=== PATIENT | female | born 1970 | race Caucasian/White ===

== ENCOUNTER 2016-10-08 13:56 | Emergency (ER) | payer MEDICAID ==
[2016-10-08 14:50] VITALS: TEMP 98.4
--- NOTE | 2016-10-08 15:32 | C.PDOC ---
History Of Present Illness 45 year old female who presents to the ER with a complaint of a right sided headache over the region of her RACING BOARD MARKER shunt since yesterday. Patient denies exacerbating or relieving factors, fever, vomiting, weakness, numbness, or confusion. Time Seen by Provider: 10/08/16 15:17 Chief Complaint (Nursing): Headache History Per: Patient History/Exam Limitations: no limitations Onset/Duration Of Symptoms: Days Current Symptoms Are (Timing): Still Present Preceeding Symptoms: None Associated Symptoms: denies: Blurred Vision, Nausea, Vomiting, Extremity Weakness Recent travel outside of the [place]: No Past Medical History Reviewed: Historical Data, Nursing Documentation, Vital Signs Vital Signs: Last Vital Signs Temp 98.4 F 10/08/16 14:44 Pulse 75 10/08/16 14:44 Resp 17 10/08/16 14:44 BP 115/76 10/08/16 14:44 Pulse Ox 99 10/08/16 16:05 - Medical History PMH: CHF, HTN, Hypercholesterolemia, Seizures (siezure at 15 yrs old), Chronic Pain (right hip secondary to surgery) - [facility] Procedures BYPASS CEREB VENT TO PERITON CAV W SYNTH SUB, PERC (03/15/15) Family History: States: Unknown Family Hx - Social History Hx Tobacco Use: No Hx Alcohol Use: No Hx Substance Use: No - Immunization History Hx Tetanus Toxoid Vaccination: No Hx Influenza Vaccination: No Hx Pneumococcal Vaccination: No Review Of Systems Constitutional: Negative for: Fever, Chills Cardiovascular: Negative for: Chest Pain, Palpitations Respiratory: Negative for: Cough, Shortness of Breath Gastrointestinal: Negative for: Nausea, Vomiting, Abdominal Pain Genitourinary: Negative for: Dysuria Neurological: Positive for: Headache. Negative for: Weakness, Numbness Physical Exam - Physical Exam Appears: Non-toxic, No Acute Distress Skin: Normal Color, Warm, Dry Head: Other (No redness or swelling around RACING BOARD MARKER shunt on the right side of head) Eye(s): bilateral: Normal Inspection, PERRL, EOMI Oral Mucosa: Moist Neck: Normal, Supple Chest: Symmetrical, No Tenderness Cardiovascular: Rhythm Regular, No Murmur Respiratory: Normal Breath Sounds, No Rales, No Rhonchi, No Wheezing Gastrointestinal/Abdominal: Soft, No Tenderness Neurological/Psych: Oriented x3, Normal Speech, Normal Cognition, Normal Cranial Nerves, Normal Motor, Normal Sensation, Other (Normal cerebellar, No focal deficits) ED Course And Treatment O2 Sat by Pulse Oximetry: 99 (Room air) Pulse Ox Interpretation: Normal Medical Decision Making Medical Decision Makin the pt feels better, denies need for any additional pain medicine. disc results, plan for f/u, rtr. PROCEDURE: CT HEAD WITHOUT CONTRAST. HISTORY: headache hx v/p shunt COMPARISON: Comparison is made to the previous study dated 03/23/2015 TECHNIQUE: Axial computed tomography images were obtained through the head/brain without intravenous contrast. Radiation dose: Total exam DLP = 817.32 mGy-cm. This CT exam was performed using one or more of the following dose reduction techniques: Automated exposure control, adjustment of the mA and/or kV according to patient size, and/or use of iterative reconstruction technique. FINDINGS: HEMORRHAGE: No intracranial hemorrhage. BRAIN: Focal white matter hypodensity is again noted at the left frontal lobe has not significantly changed since the previous exam. Periventricular white matter hypodensities are again seen. VENTRICLES: The lateral and 3rd ventricles are moderately dilated. The 4th ventricle is mildly dilated. Again seen is possible cystic lesion at or adjacent to the 3rd ventricle at the midline. Again seen is right parietal approach ventriculostomy catheter extending to the midline in between the lateral ventricles. CALVARIUM: Right parietal pinhole for the ventriculoperitoneal shunt catheter is again noted. No evidence of acute pathology in the calvarium PARANASAL SINUSES: Unremarkable as visualized. No significant inflammatory changes. MASTOID AIR CELLS: Unremarkable as visualized. No inflammatory changes. OTHER FINDINGS: None. IMPRESSION: Persistent moderate hydrocephalus as described above. Re- demonstration of midline cystic lesion at or adjacent to the 3rd ventricle. Re- demonstration of patchy hypodensity at the periventricular region represent a combination of transependymal edema and white matter chronic microvascular ischemic disease. Re- demonstration of focal hypodensity at the white matter of the left frontal lobe. Disposition - Disposition Disposition: HOME/ ROUTINE Disposition Time: 17:56 Condition: IMPROVED - Clinical Impression Clinical Impression: Head pain - Scribe Statement The provider has reviewed the documentation as recorded by the Scribe Yao Del Real All medical record entries made by the Scribe were at my direction and personally dictated by me. I have reviewed the chart and agree that the record accurately reflects my personal performance of the history, physical exam, medical decision making, and the department course for this patient. I have also personally directed, reviewed, and agree with the discharge instructions and disposition.
--- NOTE | 2016-10-08 17:41 | CT ---
PROCEDURE: CT HEAD WITHOUT CONTRAST. HISTORY: headache hx v/p shunt COMPARISON: Comparison is made to the previous study dated 03/23/2015 TECHNIQUE: Axial computed tomography images were obtained through the head/brain without intravenous contrast. Radiation dose: Total exam DLP = 817.32 mGy-cm. This CT exam was performed using one or more of the following dose reduction techniques: Automated exposure control, adjustment of the mA and/or kV according to patient size, and/or use of iterative reconstruction technique. FINDINGS: HEMORRHAGE: No intracranial hemorrhage. BRAIN: Focal white matter hypodensity is again noted at the left frontal lobe has not significantly changed since the previous exam. Periventricular white matter hypodensities are again seen. VENTRICLES: The lateral and 3rd ventricles are moderately dilated. The 4th ventricle is mildly dilated. Again seen is possible cystic lesion at or adjacent to the 3rd ventricle at the midline. Again seen is right parietal approach ventriculostomy catheter extending to the midline in between the lateral ventricles. CALVARIUM: Right parietal pinhole for the ventriculoperitoneal shunt catheter is again noted. No evidence of acute pathology in the calvarium PARANASAL SINUSES: Unremarkable as visualized. No significant inflammatory changes. MASTOID AIR CELLS: Unremarkable as visualized. No inflammatory changes. OTHER FINDINGS: None. IMPRESSION: Persistent moderate hydrocephalus as described above. Re- demonstration of midline cystic lesion at or adjacent to the 3rd ventricle. Re- demonstration of patchy hypodensity at the periventricular region represent a combination of transependymal edema and white matter chronic microvascular ischemic disease. Re- demonstration of focal hypodensity at the white matter of the left frontal lobe.
[2016-10-08 18:17] VITALS: BP 123/85; PULSE 68; RESP 15; O2SAT 98
== END 2016-10-08 18:17 | disposition home or self-care (01) ==
LOC: C.ER 13:56
DX: R51 Headache (principal)
CPT/HCPCS: 70450; 96372; 99284; J1885

== ENCOUNTER 2016-10-15 17:31 | Emergency (ER) | payer MEDICAID ==
[2016-10-15 17:47] VITALS: TEMP 98.3
--- NOTE | 2016-10-15 18:24 | C.PDOC ---
History Of Present Illness 45 y/o female, with past medical history of HTN, presents to emergency department with complaints of bilateral leg swelling for the last 3 days. Otherwise, denies extremity weakness, numbness, chest pain, shortness of breath , fever, or other complaints at this time. Time Seen by Provider: 10/15/16 18:12 Chief Complaint (Nursing): Lower Extremity Problem/Injury History Per: Patient History/Exam Limitations: no limitations Onset/Duration Of Symptoms: Days (3) Current Symptoms Are (Timing): Still Present Severity: None Pain Scale Rating Of: 0 Recent travel outside of the [place]: No Additional History Per: Patient Past Medical History Reviewed: Historical Data, Nursing Documentation, Vital Signs Vital Signs: Last Vital Signs Temp 98.3 F 10/15/16 17:42 Pulse 78 10/15/16 19:31 Resp 18 10/15/16 19:31 BP 126/80 10/15/16 19:31 Pulse Ox 99 10/15/16 19:31 - Medical History PMH: CHF, HTN, Hypercholesterolemia, Seizures (siezure at 15 yrs old), Chronic Pain (right hip secondary to surgery) Denies: Chronic Kidney Disease - [facility] Procedures BYPASS CEREB VENT TO PERITON CAV W SYNTH SUB, PERC (03/15/15) Family History: States: Unknown Family Hx - Social History Hx Tobacco Use: No Hx Alcohol Use: No Hx Substance Use: No - Immunization History Hx Tetanus Toxoid Vaccination: No Hx Influenza Vaccination: No Hx Pneumococcal Vaccination: No Review Of Systems Except As Marked, All Systems Reviewed And Found Negative. Constitutional: Negative for: Fever, Chills Cardiovascular: Negative for: Chest Pain, Palpitations Respiratory: Negative for: Shortness of Breath Skin: Positive for: Other (BL leg swelling). Negative for: Rash Neurological: Negative for: Weakness, Numbness Physical Exam - Physical Exam Appears: Non-toxic, No Acute Distress Skin: Normal Color, Warm, Dry Head: Atraumatic, Normacephalic Chest: Symmetrical Cardiovascular: Rhythm Regular, No Murmur Respiratory: Normal Breath Sounds, No Rales, No Rhonchi, No Wheezing Extremity: Normal ROM, No Tenderness, Pedal Edema, Capillary Refill (< 2 sec.), No Deformity, Swelling (+1 edema to bilateral legs) Extremity: Bilateral: Atraumatic, Normal Color And Temperature Pulses: Left Dorsalis Pedis: Normal, Right Dorsalis Pedis: Normal Neurological/Psych: Oriented x3, Normal Speech, Normal Motor, Normal Sensation ED Course And Treatment - Laboratory Results Result Diagrams: 10/15/16 18:43 10/15/16 18:43 O2 Sat by Pulse Oximetry: 98 (on RA) Pulse Ox Interpretation: Normal Progress Note: Blood work, urinalysis, EKG, CXR ordered and reviewed. Medical Decision Making Medical Decision Making: r/o chf, dvt. pt well appeairing in nad 715: labs unremarkable. pt speaking full sentences, in nad. advise outpt f/u and return precautions ekg nsr [address] twave cahgnes. normal intervals. dimer neg. no e/o of chf,. Disposition - Disposition Disposition: HOME/ ROUTINE Disposition Time: 19:18 Condition: STABLE Additional Instructions: please follow up with your doctor. return to er with worsening symptoms or concerns. please discuss your medication managment with your pmd Instructions: Hypokalemia (ED), Leg Edema (ED) - Clinical Impression Clinical Impression: Leg swelling - Scribe Statement The provider has reviewed the documentation as recorded by the Scribbebe Bang All medical record entries made by the Elielibbebe were at my direction and personally dictated by me. I have reviewed the chart and agree that the record accurately reflects my personal performance of the history, physical exam, medical decision making, and the department course for this patient. I have also personally directed, reviewed, and agree with the discharge instructions and disposition.
[2016-10-15 18:46] LABS: BASO % 0.4 % (0.0-2.0); EOS # 0.1 K/uL (0.0-0.7); EOS % 1.6 % (0.0-4.0); HEMOGLOBIN 12.5 g/dL (11.0-16.0); LYMPH # 2.4 K/uL (1.0-4.3); LYMPH % 33.5 % (20.0-40.0); MEAN CELL VOLUME 90.9 fL (81.0-99.0); MEAN CORPUSCULAR HEMOGLOBIN 30.4 pg (27.0-31.0); MEAN CORPUSCULAR HGB CONC 33.4 g/dL (33.0-37.0); MEAN PLATELET VOLUME 7.6 fL (7.2-11.7); MONO # 0.5 K/uL (0.0-0.8); MONO % 7.3 % (0.0-10.0); NEUT # 4.1 K/uL (1.8-7.0); NEUT % 57.2 % (50.0-75.0); NRBC % 0.3 % (0.0-2.0); RBC 4.12 Mil/uL (3.80-5.20); RED CELL DISTRIBUTION WIDTH 13.1 % (11.5-14.5); WHITE BLOOD COUNT 7.2 K/uL (4.8-10.8)
[2016-10-15] MEDS ORDERED: Potassium Chloride 20 mEq ER Tab PO STA (18:54)
[2016-10-15 18:55] LABS: ALB/GLOB RATIO 1.2 (1.0-2.1); AST/SGOT 29 U/L (14-36); GFR AFRICAN-AMERICAN > 60; GFR NON-AFRICAN AMERICAN > 60
[2016-10-15 18:56] LABS: ALT/SGPT 49 U/L (9-52); BLOOD UREA NITROGEN 15 mg/dL (7-17); CALCIUM 8.6 mg/dl (8.6-10.4)
[2016-10-15 19:00] LABS: INR 0.9; PARTIAL THROMBOPLASTIN TIME 28 SECONDS (21-34); PROTHROMBIN TIME 10.4 SECONDS (9.7-12.2)
[2016-10-15 19:00] LABS: HCG,QUALITATIVE URINE NEGATIVE (NEGATIVE); SQUAMOUS EPITHIAL 3 /hpf (0-5); URINE BACTERIA RARE (<OCC); URINE BILIRUBIN NEGATIVE (NEGATIVE); URINE BLOOD NEGATIVE (NEGATIVE); URINE CLARITY Clear (Clear); URINE COLOR Straw (YELLOW); URINE GLUCOSE (UA) NORMAL (Normal); URINE LEUKOCYTE ESTERASE NEG Leu/uL (Negative); URINE NITRATE NEGATIVE (NEGATIVE); URINE PROTEIN NEGATIVE (NEGATIVE); URINE UROBILINOGEN NORMAL mg/dL (0.2-1.0)
[2016-10-15 19:04] LABS: B-TYPE NATRIURETIC PEPTIDE 43.5 pg/mL (0-450)
[2016-10-15 19:07] LABS: D DIMER < 200 ng/mlDDU (0-243)
[2016-10-15] MEDS ORDERED: Potassium Chloride 20 mEq ER Tab PO ONE (19:18)
[2016-10-15 19:32] VITALS: BP 126/80; PULSE 78; RESP 18
[2016-10-15 21:41] VITALS: O2SAT 98
--- NOTE | 2016-10-16 08:07 | RAD ---
HISTORY: chest pain COMPARISON: Chest x-ray performed 03/10/15 TECHNIQUE: Chest, one view. FINDINGS: Tubing projects over the soft tissues of the right neck, the right ml thorax, in the right upper abdomen consistent with a HANDS ASSEMBLER shunt; correlate clinically. LUNGS: No focal consolidation. Please note that chest x-ray has limited sensitivity for the detection of pulmonary masses. PLEURA: No significant pleural effusion identified. No definite pneumothorax . CARDIOVASCULAR: The cardiomediastinal silhouette appears within normal limits of size. OSSEOUS STRUCTURES: No acute osseous abnormality identified. VISUALIZED UPPER ABDOMEN: Unremarkable. OTHER FINDINGS: None. IMPRESSION: Right-sided HANDS ASSEMBLER shunt. No focal consolidation, significant pleural effusion, or definite pneumothorax identified.
--- NOTE | 2016-10-16 13:03 | CARD ---
APPROVED REPORT EKG Measurement Heart [id number] <Conclusion> Normal sinus rhythm Normal ECG
== END 2016-10-15 19:31 | disposition home or self-care (01) ==
LOC: C.ER 17:31
DX: M79.89 Other specified soft tissue disorders (principal)

== ENCOUNTER 2016-10-29 18:53 | Emergency (ER) | payer MEDICAID ==
[2016-10-29 19:19] VITALS: PULSE 76; RESP 20; TEMP 98.1; O2SAT 98
[2016-10-29 20:01] LABS: RBC URINE < 1 /hpf (0-3); URINE BACTERIA RARE (<OCC); URINE BILIRUBIN NEGATIVE (NEGATIVE); URINE BLOOD NEGATIVE (NEGATIVE); URINE COLOR Yellow (YELLOW); URINE GLUCOSE (UA) NORMAL (Normal); URINE KETONE NEGATIVE (NEGATIVE); URINE LEUKOCYTE ESTERASE NEG Leu/uL (Negative); URINE PROTEIN NEGATIVE (NEGATIVE); URINE UROBILINOGEN NORMAL mg/dL (0.2-1.0); WBC URINE 1 /hpf (0-5)
[2016-10-29] MEDS ORDERED: Sodium Chloride 0.9% 1,000 ML IV ONE (20:21)
[2016-10-29] MEDS ORDERED: Sodium Chloride 0.9% 1,000 ML ONE (20:28)
[2016-10-29 20:40] LABS: BASO % 0.4 % (0.0-2.0); EOS # 0.1 K/uL (0.0-0.7); EOS % 1.6 % (0.0-4.0); HEMATOCRIT 37.8 % (34.0-47.0); LYMPH # 2.6 K/uL (1.0-4.3); LYMPH % 42.6 % (20.0-40.0); MEAN CELL VOLUME 89.6 fL (81.0-99.0); MEAN CORPUSCULAR HEMOGLOBIN 30.8 pg (27.0-31.0); MEAN CORPUSCULAR HGB CONC 34.4 g/dL (33.0-37.0); MEAN PLATELET VOLUME 7.8 fL (7.2-11.7); MONO # 0.4 K/uL (0.0-0.8); MONO % 5.9 % (0.0-10.0); RED CELL DISTRIBUTION WIDTH 13.7 % (11.5-14.5); WHITE BLOOD COUNT 6.2 K/uL (4.8-10.8)
[2016-10-29 20:48] LABS: ALB/GLOB RATIO 1.5 (1.0-2.1); ALKALINE PHOSPHATASE 85 U/L (38-126); ALT/SGPT 43 U/L (9-52); AST/SGOT 25 U/L (14-36); BILIRUBIN,TOTAL 0.1 mg/dL (0.2-1.3); BLOOD UREA NITROGEN 17 mg/dL (7-17); CALCIUM 8.6 mg/dl (8.6-10.4); CARBON DIOXIDE 30 mmol/L (22-30); CHLORIDE 95 mmol/L (98-107); GFR AFRICAN-AMERICAN > 60; GLUCOSE,RANDOM 97 mg/dL (65-105); POTASSIUM 3.6 mmol/L (3.6-5.2); SODIUM 137 mmol/L (132-148); TOTAL PROTEIN 6.9 g/dL (6.3-8.3)
[2016-10-29 21:03] VITALS: BP 125/81
--- NOTE | 2016-10-29 21:10 | C.PDOC ---
History Of Present Illness 45 year old female who presents to the ER with a complaint of cramping left sided abdominal pain for the past day. Denies nausea, vomiting, diarrhea, fever , or chills. Time Seen by Provider: 10/29/16 20:14 Chief Complaint (Nursing): Abdominal Pain History Per: Patient History/Exam Limitations: no limitations Onset/Duration Of Symptoms: Days Current Symptoms Are (Timing): Still Present Location Of Pain/Discomfort: LUQ, LLQ Radiation Of Pain To:: None Quality Of Discomfort: Cramping Associated Symptoms: denies: Fever, Chills, Nausea, Vomiting, Diarrhea, Urinary Symptoms Exacerbating Factors: None Alleviating Factors: None Recent travel outside of the [place]: No Past Medical History Reviewed: Historical Data, Nursing Documentation, Vital Signs Vital Signs: Last Vital Signs Temp 98.1 F 10/29/16 19:18 Pulse 76 10/29/16 19:18 Resp 20 10/29/16 19:18 BP 125/81 10/29/16 21:02 Pulse Ox 98 10/29/16 21:11 - Medical History PMH: CHF, HTN, Hypercholesterolemia, Seizures (siezure at 15 yrs old), Chronic Pain (right hip secondary to surgery) - [facility] Procedures BYPASS CEREB VENT TO PERITON CAV W SYNTH SUB, PERC (03/15/15) Family History: States: Unknown Family Hx - Social History Hx Tobacco Use: No Hx Alcohol Use: No Hx Substance Use: No - Immunization History Hx Tetanus Toxoid Vaccination: No Hx Influenza Vaccination: No Hx Pneumococcal Vaccination: No Review Of Systems Constitutional: Negative for: Fever, Chills Gastrointestinal: Positive for: Abdominal Pain. Negative for: Nausea, Vomiting , Diarrhea Physical Exam - Physical Exam Appears: Non-toxic Skin: Normal Color, Warm, Dry Head: Atraumatic, Normacephalic Oral Mucosa: Moist Chest: Symmetrical, No Tenderness Cardiovascular: Rhythm Regular, No Murmur Respiratory: Normal Breath Sounds, No Rales, No Rhonchi, No Wheezing Gastrointestinal/Abdominal: Soft, Tenderness (Mild left sided) Neurological/Psych: Oriented x3, Normal Speech, Normal Cognition ED Course And Treatment - Laboratory Results Result Diagrams: 10/29/16 20:32 10/29/16 20:32 Lab Interpretation: Normal (ua neg.) Urine POC: Negative O2 Sat by Pulse Oximetry: 98 (Room air) Pulse Ox Interpretation: Normal - Radiology CXR: Interpreted by Me CXR Interpretation: Yes: No Acute Disease - Other Rad abd x 2 X-Ray: Interpreted by Me (+FOS) Progress Note: Abdominal x-ray and blood work ordered. Toradol and IV fluids administered. Reevaluation Time: 21:10 Reassessment Condition: Improved Medical Decision Making Medical Decision Making: constipation Disposition Doctor Will See Patient In The: Office Counseled Patient/Family Regarding: Studies Performed, Diagnosis - Disposition Referrals: Jeovany Pimentel MD [Medical Doctor] - Disposition: HOME/ ROUTINE Disposition Time: 21:10 Condition: GOOD Additional Instructions: drink bottle of Mag Citrate now Re-evaluate your abdominal discomfort after using the bathroom 2-3 times. continue Colace 100 mg (stool softener) twice a day to help PREVENT constipation diet and exercise changes to eat more fresh fruits and vegetables Follow-up with your doctor as needed in 1-2 days. Prescriptions: Docusate [Colace] 100 mg PO BID #60 cap Magnesium Citrate [[facility] Magnesium Citrate] 300 ml PO ONCE PRN #1 bottle PRN Reason: Constipation Instructions: Constipation (ED), Gas and Bloating (ED) Forms: [email or web address] [facility] (Greenlandic) - Clinical Impression Clinical Impression: Colicky left lower quadrant pain - Scribe Statement The provider has reviewed the documentation as recorded by the Scribbebe Del Real All medical record entries made by the Scribe were at my direction and personally dictated by me. I have reviewed the chart and agree that the record accurately reflects my personal performance of the history, physical exam, medical decision making, and the department course for this patient. I have also personally directed, reviewed, and agree with the discharge instructions and disposition.
--- NOTE | 2016-10-30 09:29 | RAD ---
Abdomen four views History: Abdominal pain. Comparison: None available. Findings: Right CLINICAL INFORMATICS PHYSICIAN shunt traversing through the right ml thorax extending into the right ml abdomen and into the midline pelvis. The shunt appears somewhat coiled in the right ml abdomen. Lung maki are clear. Moderate fecal retention in the colon. Degenerative changes in the spine and bilateral hips. Calcified phleboliths in the pelvis. Impression: Moderate fecal retention in the colon. CLINICAL INFORMATICS PHYSICIAN shunt as described above.
== END 2016-10-29 21:23 | disposition home or self-care (01) ==
LOC: C.ER 18:53 → SUPCPDRO 18:53 → C.ER 21:23
DX: R10.32 Left lower quadrant pain (principal)
CPT/HCPCS: 74022; 80053; 81001; 83690; 84703; 85025; 96374; 99285; J1885; J7040

== ENCOUNTER 2017-01-26 09:51 | Emergency (ER) | payer MEDICAID ==
[2017-01-26 10:27] VITALS: BMI 29.2
[2017-01-26 10:31] VITALS: O2SAT 98
--- NOTE | 2017-01-26 10:50 | C.PDOC ---
History Of Present Illness 46 y/o female presents to the ED c/o epigastric pain that started since 9am this morning. The patient states that the pain is constant, sharp and burning sensation. The patient admits to prior similar episodes due to geart burn/GERD. She denies nausea, vomiting, fever, coughing, and shortness of breath, chest pain. Time Seen by Provider: 01/26/17 10:05 Chief Complaint (Nursing): Chest Pain History Per: Patient History/Exam Limitations: no limitations Onset/Duration Of Symptoms: Hrs Current Symptoms Are (Timing): Still Present Severity: Mild Quality: Sharp, Burning, "Pain" Past Medical History Reviewed: Historical Data, Nursing Documentation, Vital Signs Vital Signs: Last Vital Signs Temp Pulse 68 01/26/17 12:36 Resp 18 01/26/17 12:36 BP 128/77 01/26/17 12:36 Pulse Ox 98 01/26/17 13:15 - Medical History PMH: CHF, HTN, Hypercholesterolemia, Seizures (seizure at 15 yrs old), Chronic Pain (right hip secondary to surgery) - [facility] Procedures BYPASS CEREB VENT TO PERITON CAV W SYNTH SUB, PERC (03/15/15) Family History: States: No Known Family Hx - Social History Hx Tobacco Use: No Hx Alcohol Use: No Hx Substance Use: No - Immunization History Hx Tetanus Toxoid Vaccination: No Hx Influenza Vaccination: Yes (11/2016) Hx Pneumococcal Vaccination: No Review Of Systems Except As Marked, All Systems Reviewed And Found Negative. Constitutional: Negative for: Fever, Chills Cardiovascular: Positive for: Light Headedness. Negative for: Chest Pain, Palpitations Respiratory: Negative for: Cough, Shortness of Breath, SOB with Excertion Gastrointestinal: Positive for: Other (epigastric burning/sharp pain ). Negative for: Nausea, Vomiting, Diarrhea Genitourinary: Negative for: Dysuria, Hematuria Skin: Negative for: Rash Physical Exam - Physical Exam Appears: Well, Non-toxic, Other (mild discomfort) Skin: Dry Oral Mucosa: Moist Neck: Supple Chest: Tenderness (at lower sternal area and epigastric area ) Cardiovascular: Rhythm Regular Respiratory: Normal Breath Sounds, No Rales, No Rhonchi, No Wheezing Gastrointestinal/Abdominal: Soft, Tenderness, No Guarding, No Rebound, Other ((- ) Ren's ) Extremity: Normal ROM Neurological/Psych: Oriented x3 Gait: Steady ED Course And Treatment - Laboratory Results Result Diagrams: 01/26/17 10:58 01/26/17 10:58 ECG: Interpreted By Me, Viewed By Me (NSR 75 bpm, normal axis, no acute ST/T wave changes ) ECG Interpretation: Normal O2 Sat by Pulse Oximetry: 98 (RA) Pulse Ox Interpretation: Normal - Radiology CXR: Interpreted by Me, Viewed By Me CXR Interpretation: Yes: No Acute Disease. No: Infiltrates Progress Note: Blood work, UA, Upreg, CXR, EKG ordered and reviewed. Patient given IV NS bolus, IV pepcid, PO Maalox. Reevaluation Time: 13:15 Reassessment Condition: Improved (On reassessment, patient is resting comfortably, in no current pain. She states she feels better. Blood work, CXR , EKG WNL. She was given Rx for protonix, and instructed to follow up with PMD/ clinic in 1-2 days. She understands she should return to ED if symptoms return/ worsen.) Disposition Counseled Patient/Family Regarding: Studies Performed, Diagnosis, Need For Followup, Rx Given - Disposition Referrals: Michael Coombs MD [Medical Doctor] - Disposition: HOME/ ROUTINE Disposition Time: 13:15 Condition: STABLE Additional Instructions: FOLLOW UP WITH YOUR DOCTOR IN 1-2 DAYS USE MEDICATION DIRECTED RETURN TO ER IF SYMPTOMS WORSEN Prescriptions: Pantoprazole [Protonix EC Tab] 20 mg PO DAILY #30 ect Instructions: Epigastric Pain (ED) Forms: [facility] (Yoruba) Print Language: ICELANDIC - POA Present On Arrival: None - Clinical Impression Clinical Impression: Epigastric abdominal pain, Heartburn - Scribe Statement The provider has reviewed the documentation as recorded by the Elielibbebe Palomo All medical record entries made by the Elielibbebe were at my direction and personally dictated by me. I have reviewed the chart and agree that the record accurately reflects my personal performance of the history, physical exam, medical decision making, and the department course for this patient. I have also personally directed, reviewed, and agree with the discharge instructions and disposition.
[2017-01-26 11:05] LABS: BASO % 0.4 % (0.0-2.0); EOS # 0.2 K/uL (0.0-0.7); EOS % 2.1 % (0.0-4.0); HEMATOCRIT 38.8 % (34.0-47.0); LYMPH # 1.8 K/uL (1.0-4.3); LYMPH % 21.1 % (20.0-40.0); MEAN CELL VOLUME 90.5 fL (81.0-99.0); MEAN CORPUSCULAR HEMOGLOBIN 31.3 pg (27.0-31.0); MEAN CORPUSCULAR HGB CONC 34.6 g/dL (33.0-37.0); MEAN PLATELET VOLUME 7.8 fL (7.2-11.7); MONO # 0.5 K/uL (0.0-0.8); RED CELL DISTRIBUTION WIDTH 13.2 % (11.5-14.5); WHITE BLOOD COUNT 8.6 K/uL (4.8-10.8)
[2017-01-26 11:18] LABS: CHLORIDE 96 mmol/L (98-107); SODIUM 134 mmol/L (132-148)
[2017-01-26 11:19] LABS: POTASSIUM 3.5 mmol/L (3.6-5.2)
[2017-01-26 11:20] LABS: GFR AFRICAN-AMERICAN > 60
[2017-01-26 11:21] LABS: ALB/GLOB RATIO 1.3 (1.0-2.1); ALKALINE PHOSPHATASE 88 U/L (38-126); ALT/SGPT 68 U/L (9-52); AST/SGOT 37 U/L (14-36); BILIRUBIN,TOTAL 0.7 mg/dL (0.2-1.3); BLOOD UREA NITROGEN 13 mg/dL (7-17); CALCIUM 8.9 mg/dl (8.6-10.4); CARBON DIOXIDE 26 mmol/L (22-30); GLUCOSE,RANDOM 91 mg/dL (65-105); TOTAL PROTEIN 7.8 g/dL (6.3-8.3)
[2017-01-26 11:23] LABS: RBC URINE < 1 /hpf (0-3); URINE BILIRUBIN NEGATIVE (NEGATIVE); URINE BLOOD NEGATIVE (NEGATIVE); URINE COLOR Yellow (YELLOW); URINE GLUCOSE (UA) NORMAL (Normal); URINE KETONE NEGATIVE (NEGATIVE); URINE LEUKOCYTE ESTERASE NEG Leu/uL (Negative); URINE PROTEIN NEGATIVE (NEGATIVE); URINE UROBILINOGEN NORMAL mg/dL (0.2-1.0); WBC URINE < 1 /hpf (0-5)
--- NOTE | 2017-01-26 11:54 | RAD ---
PROCEDURE: CHEST RADIOGRAPH, 1 VIEW HISTORY: epigastric pain COMPARISON: 10/15/2016 FINDINGS: LUNGS: Lines and tubes in stable position. Mild venous congestion. PLEURA: No pneumothorax or pleural fluid seen. CARDIOVASCULAR: Normal. OSSEOUS STRUCTURES: No significant abnormalities. VISUALIZED UPPER ABDOMEN: Normal. OTHER FINDINGS: None. IMPRESSION: Lines and tubes in stable position. Mild venous congestion.
[2017-01-26] MEDS ORDERED: Alum-Mag Hydrox-Simethicone Susp (30 mL) PO STA (12:20)
[2017-01-26 12:37] VITALS: BP 128/77; PULSE 68; RESP 18
[2017-01-26] MEDS ORDERED: Aluminum Hydroxide/Magnesium Hydroxide Susp (30 mL) ONE (12:37)
== END 2017-01-26 13:28 | disposition home or self-care (01) ==
LOC: C.ER 09:51
DX: R12 Heartburn (principal); R10.13 Epigastric pain
CPT/HCPCS: 71010; 80053; 80324; 80345; 80346; 80349; 80353; 80358; 80361; 81001; 82550; 82553; 83690; 83992; 84484; 84703; 85025; 86703; 96374; 99284; C9113

== ENCOUNTER 2017-04-01 22:32 | Emergency (ER) | payer MEDICAID ==
[2017-04-01 22:33] VITALS: BMI 29.2
[2017-04-01 22:41] VITALS: BP 112/69; PULSE 69; RESP 18; TEMP 98.1; O2SAT 97
--- NOTE | 2017-04-01 22:55 | C.PDOC ---
History Of Present Illness 46 year old female presents to the ED for evaluation of vague, achy paresthesia to her bilateral upper extremities which began earlier today. Patient is familiar to this ED and has had many prior evaluations concerning mild vague symptoms. Patient has history of WINDOW TRIMMER shunt. Patient has previously undergone [address] scans, most recent scan done in September 2016, all of which have been unremarkable. She denies any recent trauma/injuries. Time Seen by Provider: 04/01/17 22:45 Chief Complaint (Nursing): Upper Extremity Problem/Injury History Per: Patient History/Exam Limitations: no limitations Onset/Duration Of Symptoms: Hrs Current Symptoms Are (Timing): Still Present Quality: Aching Additional History Per: Patient Past Medical History Reviewed: Historical Data, Nursing Documentation, Vital Signs Vital Signs: Last Vital Signs Temp 98.1 F 04/01/17 22:35 Pulse 69 04/01/17 22:35 Resp 18 04/01/17 22:35 BP 112/69 04/01/17 22:35 Pulse Ox 97 04/01/17 23:44 - Medical History PMH: CHF, HTN, Hypercholesterolemia, Seizures (seizure at 15 yrs old), Chronic Pain (right hip secondary to surgery) Denies: Chronic Kidney Disease Surgical History: No Surg Hx - [facility] Procedures BYPASS CEREB VENT TO PERITON CAV W SYNTH SUB, PERC (03/15/15) Family History: States: Unknown Family Hx - Social History Hx Tobacco Use: No Hx Alcohol Use: No Hx Substance Use: No - Immunization History Hx Tetanus Toxoid Vaccination: No Hx Influenza Vaccination: No Hx Pneumococcal Vaccination: No Review Of Systems Neurological: Positive for: Other (paresthesia to bilateral upper extremities ) Physical Exam - Physical Exam Appears: Non-toxic, No Acute Distress Skin: Normal Color, Warm, Dry Head: Atraumatic, Normacephalic Eye(s): bilateral: Normal Inspection Oral Mucosa: Moist Neck: Supple Chest: Symmetrical, No Deformity, No Tenderness Cardiovascular: Rhythm Regular, No Murmur Respiratory: Normal Breath Sounds, No Rales, No Rhonchi, No Wheezing Extremity: Normal ROM, No Tenderness, Capillary Refill (less than 2 seconds), No Deformity, No Swelling Pulses: Left Radial: Normal, Right Radial: Normal Neurological/Psych: Oriented x3, Normal Speech, Normal Cognition, Normal Motor, Normal Sensation Gait: Steady ED Course And Treatment O2 Sat by Pulse Oximetry: 97 (on RA) Pulse Ox Interpretation: Normal Progress Note: Motrin PO administered. Medical Decision Making Medical Decision Making: vague upper extremity symptoms of parasthesias, but neurologically intact. h/o WINDOW TRIMMER shunt [address]'s neg 3 prior abd/pelvic CT's neg. Consider pt with frequent presentations and normal workups pt prefers motrin for her symptoms, though she claims to have parasthesias, perhaps there is a disconnect between understanding the difference, which was explained. Pt satisfied with outpatient eval. Consider outpatient MRI of brain/C-spine non-emergently as opt through PMD Disposition Doctor Will See Patient In The: Office Counseled Patient/Family Regarding: Studies Performed, Diagnosis - Disposition Referrals: Michael Coombs MD [Medical Doctor] - Disposition: HOME/ ROUTINE Disposition Time: 22:54 Condition: GOOD Additional Instructions: motrin/advil 400-600 mg every 6 hours as needed Consider outpatient MRI of Brain/C-Spine as indicated by neurological symptoms. Instructions: Paresthesia (ED) Forms: [employer] (Turkmen) - Clinical Impression Clinical Impression: Paresthesia of upper extremity - Scribe Statement The provider has reviewed the documentation as recorded by the Scribe (Eleanor Bang) Provider Attestation: All medical record entries made by the Scribe were at my direction and personally dictated by me. I have reviewed the chart and agree that the record accurately reflects my personal performance of the history, physical exam, medical decision making, and the department course for this patient. I have also personally directed, reviewed, and agree with the discharge instructions and disposition.
== END 2017-04-01 23:10 | disposition home or self-care (01) ==
LOC: C.ER 22:32
DX: R20.2 Paresthesia of skin (principal); E78.00 Pure hypercholesterolemia, unspecified; I50.9 Heart failure, unspecified; I10 Essential (primary) hypertension

== ENCOUNTER 2017-04-16 08:25 | Emergency (ER) | payer MEDICAID ==
[2017-04-16 08:34] VITALS: PULSE 68; RESP 18; O2SAT 99; BMI 34.5
--- NOTE | 2017-04-16 09:21 | RAD ---
PROCEDURE: Radiographs of the Right Forearm HISTORY: pain and swelling, no trauma COMPARISON: None available. TECHNIQUE: Frontal and lateral views obtained. FINDINGS: BONES: No fracture or destructive lesion. Incidentally noted are carpal osseous hypertrophic degenerative changes. Well corticated old osseous avulsion of styloid versus developmental variant accessory ossifications center. No acute pathology here suggested JOINT SPACES: Unremarkable. OTHER FINDINGS: None. IMPRESSION: Unremarkable radiographs of the right forearm. Carpal findings as above
--- NOTE | 2017-04-16 09:24 | RAD ---
PROCEDURE: Right Wrist Radiographs. HISTORY: pain and swelling, no trauma COMPARISON: None. FINDINGS: BONES: No acute fracture. 4-5 mm well corticated ossification borders the ulnar styloid - accessory ossification center here versus remote old osseous avulsion - considerations. No acute fracture here suspect. Dorsal proximal row carpal cortical senescent spurring JOINTS: Radiocarpal joint space narrowing SOFT TISSUES: Normal. OTHER FINDINGS: None. IMPRESSION: No acute fracture suspect. Senescent changes as above
--- NOTE | 2017-04-16 09:42 | C.PDOC ---
History Of Present Illness 46 y/o female presents to the ER complaining of pain and swelling to the right arm which started in the morning. Patient reports that she woke up today and felt swelling over her right wrist and forearm. Patient reports that she is having trouble clenching her fist. Patient denies any trauma, numbness, weakness , fever,chills, nausea, and vomiting. Time Seen by Provider: 04/16/17 08:51 Chief Complaint (Nursing): Upper Extremity Problem/Injury History Per: Patient History/Exam Limitations: no limitations Onset/Duration Of Symptoms: Hrs Current Symptoms Are (Timing): Still Present Past Medical History Reviewed: Historical Data, Nursing Documentation, Vital Signs Vital Signs: Last Vital Signs Temp 98.1 F 04/16/17 09:58 Pulse 68 04/16/17 09:58 Resp 18 04/16/17 08:34 BP 134/80 04/16/17 09:58 Pulse Ox 99 04/16/17 10:11 - Medical History PMH: CHF, HTN, Hypercholesterolemia, Seizures (seizure at 15 yrs old), Chronic Pain (right hip secondary to surgery) Denies: Chronic Kidney Disease Surgical History: No Surg Hx - [facility] Procedures BYPASS CEREB VENT TO PERITON CAV W SYNTH SUB, PERC (03/15/15) Family History: States: No Known Family Hx - Social History Hx Tobacco Use: No Hx Alcohol Use: No Hx Substance Use: No - Immunization History Hx Tetanus Toxoid Vaccination: No Hx Influenza Vaccination: No Hx Pneumococcal Vaccination: No Review Of Systems Except As Marked, All Systems Reviewed And Found Negative. Constitutional: Negative for: Fever, Chills Gastrointestinal: Negative for: Nausea, Vomiting, Diarrhea Musculoskeletal: Positive for: Arm Pain (right arm ) Neurological: Negative for: Weakness, Numbness Physical Exam - Physical Exam Appears: Non-toxic, No Acute Distress Skin: Normal Color, Warm Head: Atraumatic, Normacephalic Eye(s): bilateral: Normal Inspection, PERRL Nose: Normal Oral Mucosa: Moist Neck: Supple Chest: Symmetrical Respiratory: Normal Breath Sounds, No Accessory Muscle Use, No Rales, No Rhonchi , No Wheezing Gastrointestinal/Abdominal: Normal Exam, Soft, No Tenderness Extremity: Normal ROM, Tenderness (right forearm tender to touch), Swelling ( swelling to the right mid forearm) Neurological/Psych: Oriented x3, Normal Speech, Normal Cognition, Normal Motor, Normal Sensation ED Course And Treatment O2 Sat by Pulse Oximetry: 99 (RA) Pulse Ox Interpretation: Normal - Other Rad No standard instances X-Ray: Viewed By Me, Read By Radiologist Interpretation: PROCEDURE: Right Wrist Radiographs. . HISTORY: pain and swelling, no trauma. COMPARISON: None. FINDINGS: BONES: No acute fracture. 4-5 mm well corticated ossification borders the ulnar styloid - accessory ossification center here versus remote old osseous avulsion - considerations. No acute fracture here suspect. Dorsal proximal row carpal cortical senescent spurring. JOINTS: Radiocarpal joint space narrowing. SOFT TISSUES: Normal. OTHER FINDINGS: None. IMPRESSION: No acute fracture suspect. Senescent changes as above Right Forearm X-Ray: Viewed By Me, Read By Radiologist Interpretation: PROCEDURE: Radiographs of the Right Forearm. HISTORY: pain and swelling, no trauma. COMPARISON: None available. TECHNIQUE: Frontal and lateral views obtained. FINDINGS: BONES: No fracture or destructive lesion. Incidentally noted are carpal osseous hypertrophic degenerative changes. Well corticated old osseous avulsion of styloid versus developmental variant accessory ossifications center. No acute pathology here suggested. JOINT SPACES: Unremarkable. OTHER FINDINGS: None. IMPRESSION: Unremarkable radiographs of the right forearm. Carpal findings as above Medical Decision Making Medical Decision Making: Impression: Joint Pain Plan: --X-Ray - Right Wrist and Forearm --Motrin --Tylenol Updates X-ray does not indicate any fracture. Patient has been instructed about RICE therapy. Patient has been discharged and told to follow up with clinic. Disposition Counseled Patient/Family Regarding: Studies Performed, Diagnosis, Need For Followup, Rx Given - Disposition Referrals: [facility] [Outside] Disposition: HOME/ ROUTINE Disposition Time: 09:41 Condition: STABLE Additional Instructions: Follow up with your doctor or our clinic. Keep hand elevated whenever possible. Return to the Emergency Department if symptoms worsen. Prescriptions: Ibuprofen [Motrin] 1 tab PO TID PRN #30 tab PRN Reason: Pain Instructions: RICE Therapy (ED) Forms: [facility] (Persian) - Clinical Impression Clinical Impression: Joint pain - Scribe Statement The provider has reviewed the documentation as recorded by the Ambika Ramírez Provider Attestation: All medical record entries made by the Scribe were at my direction and personally dictated by me. I have reviewed the chart and agree that the record accurately reflects my personal performance of the history, physical exam, medical decision making, and the department course for this patient. I have also personally directed, reviewed, and agree with the discharge instructions and disposition.
[2017-04-16 10:00] VITALS: BP 134/80; TEMP 98.1
== END 2017-04-16 10:06 | disposition home or self-care (01) ==
LOC: C.ER 08:25
DX: M25.50 Pain in unspecified joint (principal); E78.00 Pure hypercholesterolemia, unspecified; I50.9 Heart failure, unspecified; I10 Essential (primary) hypertension

== ENCOUNTER 2017-04-22 09:01 | Inpatient (IN) | payer MEDICAID ==
[2017-04-22 09:01] VITALS: BMI 34.5
[2017-04-22] MEDS ORDERED: Sodium Chloride 0.9% 1,000 ML IV ONE (09:58)
[2017-04-22] MEDS ORDERED: Sodium Chloride 0.9% 1,000 ML ONE (10:10)
[2017-04-22 10:20] LABS: BASO % 0.6 % (0.0-2.0); EOS # 0.1 K/uL (0.0-0.7); EOS % 1.3 % (0.0-4.0); HEMOGLOBIN 13.2 g/dL (11.0-16.0); LYMPH # 2.3 K/uL (1.0-4.3); LYMPH % 33.2 % (20.0-40.0); MEAN CELL VOLUME 89.2 fL (81.0-99.0); MEAN CORPUSCULAR HEMOGLOBIN 30.3 pg (27.0-31.0); MONO # 0.5 K/uL (0.0-0.8); MONO % 7.4 % (0.0-10.0); NEUT # 4.1 K/uL (1.8-7.0); NEUT % 57.5 % (50.0-75.0); RBC 4.36 Mil/uL (3.80-5.20); RED CELL DISTRIBUTION WIDTH 13.6 % (11.5-14.5); WHITE BLOOD COUNT 7.1 K/uL (4.8-10.8)
[2017-04-22 10:24] LABS: HCG,QUALITATIVE URINE NEGATIVE (NEGATIVE)
[2017-04-22 10:26] LABS: SQUAMOUS EPITHIAL < 1 /hpf (0-5); URINE BILIRUBIN NEGATIVE (NEGATIVE); URINE BLOOD NEGATIVE (NEGATIVE); URINE CLARITY Clear (Clear); URINE COLOR Yellow (YELLOW); URINE GLUCOSE (UA) NORMAL (Normal); URINE LEUKOCYTE ESTERASE NEG Leu/uL (Negative); URINE NITRATE NEGATIVE (NEGATIVE); URINE PROTEIN NEGATIVE (NEGATIVE); URINE UROBILINOGEN NORMAL mg/dL (0.2-1.0)
[2017-04-22 10:28] LABS: PROTHROMBIN TIME 10.8 SECONDS (9.7-12.2)
--- NOTE | 2017-04-22 10:28 | C.PDOC ---
History Of Present Illness 46 y/o female presents to the ER for right upper quadrant pain which has been present since the morning. Patient states that she also has nausea. Patient denies having any fever and history of gallbladder pathology. Time Seen by Provider: 04/22/17 09:50 Chief Complaint (Nursing): Abdominal Pain History Per: Patient History/Exam Limitations: no limitations Onset/Duration Of Symptoms: Hrs Current Symptoms Are (Timing): Still Present Severity: Moderate Past Medical History Reviewed: Historical Data, Nursing Documentation, Vital Signs Vital Signs: Last Vital Signs Temp 97.8 F 04/22/17 13:32 Pulse 62 04/22/17 13:32 Resp 18 04/22/17 13:32 BP 121/77 04/22/17 13:32 Pulse Ox 99 04/22/17 16:33 - Medical History PMH: CHF, HTN, Hypercholesterolemia, Seizures, Chronic Pain (right hip secondary to surgery) Denies: Chronic Kidney Disease Surgical History: No Surg Hx - [facility] Procedures BYPASS CEREB VENT TO PERITON CAV W SYNTH SUB, PERC (03/15/15) Family History: States: No Known Family Hx - Social History Hx Tobacco Use: No Hx Alcohol Use: No Hx Substance Use: No - Immunization History Hx Tetanus Toxoid Vaccination: No Hx Influenza Vaccination: Yes Hx Pneumococcal Vaccination: No Review Of Systems Except As Marked, All Systems Reviewed And Found Negative. Constitutional: Negative for: Fever, Chills Gastrointestinal: Positive for: Nausea, Abdominal Pain. Negative for: Vomiting Physical Exam - Physical Exam Appears: Non-toxic, No Acute Distress, Other (anxious, mildly uncomfortable) Skin: Normal Color, Warm Head: Atraumatic, Normacephalic Eye(s): bilateral: Normal Inspection, PERRL Nose: Normal Oral Mucosa: Moist Neck: Supple Chest: Symmetrical Cardiovascular: Rhythm Regular Respiratory: Normal Breath Sounds, No Accessory Muscle Use, No Rales, No Rhonchi , No Wheezing Gastrointestinal/Abdominal: Normal Exam, Soft, Tenderness (RUQ tenderness ) Extremity: Normal ROM Neurological/Psych: Oriented x3, Normal Speech, Normal Cognition, Normal Motor, Normal Sensation ED Course And Treatment - Laboratory Results Result Diagrams: 04/22/17 10:12 04/22/17 10:12 O2 Sat by Pulse Oximetry: 99 (RA) Pulse Ox Interpretation: Normal - Other Rad No standard instances X-Ray: Viewed By Me, Read By Radiologist Interpretation: HISTORY: abd pain. COMPARISON: 01/26/2017. TECHNIQUE: Chest PA and lateral. FINDINGS: LUNGS: No active pulmonary disease. PLEURA: No significant pleural effusion identified. No pneumothorax apparent. CARDIOVASCULAR: Normal. OSSEOUS STRUCTURES: No significant abnormalities. VISUALIZED UPPER ABDOMEN: Normal. OTHER FINDINGS: Incidentally noted right- sided ventriculoperitoneal shunt. IMPRESSION: No active disease. - CT Scan/US No standard instances Other Rad Studies (CT/US): Interpreted By Me, Read By Radiologist CT/US Interpretation: IMPRESSION: Nonspecific hepatic dome enhancement. Finding may reflect transient hepatic perfusion however underlying neoplasm cannot be entirely excluded. Dedicated three-phase CT or MRI of the liver suggested for further characterization if indicated. Small pelvic free fluid. Additional findings as above. Abdomen US Other Rad Studies (CT/US): Read By Radiologist CT/US Interpretation: Impression: Increased echogenicity of the hepatic parenchymal cortex suggestive for fatty infiltration versus hepatic parenchymal disease. Clinical correlation. Limited visualization of the pancreas. Mild hydronephrosis versus mild fullness of the left renal collecting system. Clinical correlation. Medical Decision Making Medical Decision Making: ro cholecystitis, appendicitis, colitis Plan: --CXR --Labs --Urinalysis --US-Abdomen pt reassesed observed in er over 7 hours, multiple rounds of iv analgesia. pt uncomfortable with dc accepted by dr duke for obs. Disposition - Disposition Disposition: HOSPITALIZED Disposition Time: 17:57 Condition: STABLE Forms: [facility] (Bangladeshi) - Clinical Impression Clinical Impression: Abdominal pain - Scribe Statement The provider has reviewed the documentation as recorded by the Elielibe Antonio Ramírez Provider Attestation: All medical record entries made by the Scribe were at my direction and personally dictated by me. I have reviewed the chart and agree that the record accurately reflects my personal performance of the history, physical exam, medical decision making, and the department course for this patient. I have also personally directed, reviewed, and agree with the discharge instructions and disposition. Decision To Admit - Pt Status Changed To: Hospital Disposition Of: Observation - . Bed Request Type: Regular Admitting Physician: Nixon Duke Patient Diagnosis: Abdominal pain
[2017-04-22 10:31] LABS: ALB/GLOB RATIO 1.1 (1.0-2.1); ALBUMIN 3.8 g/dL (3.5-5.0); ALT/SGPT 37 U/L (9-52); AST/SGOT 25 U/L (14-36); BILIRUBIN,DIRECT 0.2 mg/dL (0.0-0.4); BLOOD UREA NITROGEN 11 mg/dL (7-17); CALCIUM 8.3 mg/dl (8.6-10.4); GFR AFRICAN-AMERICAN > 60; GFR NON-AFRICAN AMERICAN > 60; LIPASE 180 U/L (23-300)
--- NOTE | 2017-04-22 10:37 | RAD ---
HISTORY: abd pain COMPARISON: 01/26/2017 TECHNIQUE: Chest PA and lateral FINDINGS: LUNGS: No active pulmonary disease. PLEURA: No significant pleural effusion identified. No pneumothorax apparent. CARDIOVASCULAR: Normal. OSSEOUS STRUCTURES: No significant abnormalities. VISUALIZED UPPER ABDOMEN: Normal. OTHER FINDINGS: Incidentally noted right-sided ventriculoperitoneal shunt. IMPRESSION: No active disease.
--- NOTE | 2017-04-22 12:54 | US ---
Abdominal ultrasound History: Abdominal pain. Comparison: None available. Technique: Real-time sonography was performed through the abdomen. Findings: Liver: Prominent measuring 16 centimeters in length. Increased echogenicity of the hepatic parenchymal cortex suggestive for fatty infiltration versus hepatic parenchymal disease. Clinical correlation. Gallbladder appears preserved. No calculi or sludge. Normal wall thickness of 1.4 millimeters. Negative sonographic Ren sign. Common bile duct measures 4.3 millimeters, within normal limits. Visualized portions of the pancreas are preserved. Pancreatic tail not well visualized. Spleen measures 8.6 centimeters in length, within normal limits. Visualized aorta and IVC are preserved. Right kidney: 10.2 x 3.9 x 4.7 centimeters. No calculi or hydronephrosis. Left Kidney: 10.9 x 5.6 x 5.3 centimeters. Prominence of the left renal collecting system suggestive for mild hydronephrosis. Clinical correlation. No calculi. Impression: Increased echogenicity of the hepatic parenchymal cortex suggestive for fatty infiltration versus hepatic parenchymal disease. Clinical correlation. Limited visualization of the pancreas. Mild hydronephrosis versus mild fullness of the left renal collecting system. Clinical correlation.
[2017-04-22] MEDS ORDERED: Iohexol 350mg/ml 100 ML ONE (14:37)
[2017-04-22] MEDS ORDERED: Morphine 4 MG/ML VIAL ONE (15:22)
--- NOTE | 2017-04-22 15:34 | CT ---
PROCEDURE: CT Abdomen and Pelvis with contrast HISTORY: right sided pain COMPARISON: Abdominal ultrasound performed 04/22/17 TECHNIQUE: Contrast dose: 100 mL Omnipaque 350 Radiation dose: Total exam DLP = 923.34 mGy-cm. This CT exam was performed using one or more of the following dose reduction techniques: Automated exposure control, adjustment of the mA and/or kV according to patient size, and/or use of iterative reconstruction technique. FINDINGS: Partially imaged HOTEL CUSTODIAN shunt catheter. LOWER THORAX: Mild bibasilar atelectasis. No visible pleural effusion or pneumothorax. LIVER: Nonspecific hepatic dome enhancement (coronal image 63, axial, image 9). GALLBLADDER AND BILE DUCTS: Unremarkable. PANCREAS: Unremarkable. SPLEEN: Unremarkable. ADRENALS: Unremarkable. KIDNEYS AND URETERS: The kidneys enhance symmetrically. No hydronephrosis or obstructing calculus identified. VASCULATURE: No aortic aneurysm. BOWEL: Stomach is nondistended. Lack of oral contrast limits evaluation for bowel pathology. Bowel loops appear within normal limits of caliber without evidence of obstruction. APPENDIX: The appendix is not identified. No secondary signs of acute appendicitis. PERITONEUM: Small pelvic free fluid. No free air. LYMPH NODES: No bulky adenopathy identified. BLADDER: Unremarkable. REPRODUCTIVE: Uterus is present. BONES: No acute osseous abnormality is detected. OTHER FINDINGS: None. IMPRESSION: Nonspecific hepatic dome enhancement. Finding may reflect transient hepatic perfusion however underlying neoplasm cannot be entirely excluded. Dedicated three-phase CT or MRI of the liver suggested for further characterization if indicated. Small pelvic free fluid. Additional findings as above.
--- NOTE | 2017-04-22 18:58 | CP.PCM.HP ---
Past Patient History - Infectious Disease Hx of Infectious Diseases: None - Past Medical History & Family History Past Medical History?: Yes - Past Social History Smoking Status: Never Smoked - CARDIAC Hx Congestive Heart Failure: Yes Hx Hypercholesterolemia: Yes Hx Hypertension: Yes - PULMONARY Hx Respiratory Disorders: No - NEUROLOGICAL Hx Seizures: Yes - HEENT Hx HEENT Problems: Yes Other/Comment: V/P shunt - RENAL Hx Chronic Kidney Disease: No - ENDOCRINE/METABOLIC Hx Endocrine Disorders: No - HEMATOLOGICAL/ONCOLOGICAL Hx Blood Disorders: Yes Other/Comment: HERPES SIMPLEX - INTEGUMENTARY Hx Dermatological Problems: Yes Other/Comment: herpes - MUSCULOSKELETAL/RHEUMATOLOGICAL Hx Musculoskeletal Disorders: Yes Hx Gout: Yes - GASTROINTESTINAL Hx Gastrointestinal Disorders: Yes Hx Gastroesophageal Reflux: Yes - GENITOURINARY/GYNECOLOGICAL Hx Genitourinary Disorders: Yes Other/Comment: Herpes - PSYCHIATRIC Hx Substance Use: No - SURGICAL HISTORY Hx Surgeries: Yes Other/Comment: cerebral, 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 vp data shunt 03/15 - ANESTHESIA Hx Anesthesia: Yes Hx Anesthesia Reactions: No Hx Malignant Hyperthermia: No Meds Allergies/Adverse Reactions: Allergies Allergy/AdvReac Type Severity Reaction Status Date / Time nyquil Allergy URTICARIA Uncoded 04/16/17 08:33 Physical Exam - Constitutional Appears: Well - Head Exam Head Exam: ATRAUMATIC, NORMAL INSPECTION, NORMOCEPHALIC - Eye Exam Eye Exam: EOMI, Normal appearance, PERRL Pupil Exam: NORMAL ACCOMODATION, PERRL - ENT Exam ENT Exam: Mucous Membranes Moist, Normal Exam - Neck Exam Neck exam: Positive for: Normal Inspection - Respiratory Exam Respiratory Exam: Decreased Breath Sounds - Cardiovascular Exam Cardiovascular Exam: REGULAR RHYTHM, +S1, +S2 - GI/Abdominal Exam GI & Abdominal Exam: Diminished Bowel Sounds, Soft - Rectal Exam Rectal Exam: Deferred Results - Vital Signs Recent Vital Signs: Last Vital Signs Temp 97.7 F 04/22/17 18:49 Pulse 62 04/22/17 18:49 Resp 18 04/22/17 18:49 BP 130/83 04/22/17 18:49 Pulse Ox 100 04/22/17 18:49 - Labs Result Diagrams: 04/22/17 10:12 04/22/17 10:12 Labs: Laboratory Results - last 24 hr 04/22/17 04/22/17 04/22/17 10:12 10:12 10:12 WBC 7.1 RBC 4.36 Hgb 13.2 Hct 38.9 MCV 89.2 MCH 30.3 MCHC 34.0 RDW 13.6 Plt Count 282 MPV 8.0 Neut % (Auto) 57.5 Lymph % (Auto) 33.2 [place] % (Auto) 7.4 Eos % (Auto) 1.3 Baso % (Auto) 0.6 Neut # 4.1 Lymph # 2.3 [place] # 0.5 Eos # 0.1 Baso # 0.0 PT 10.8 INR 1.0 APTT 28 Sodium Potassium Chloride Carbon Dioxide Anion Gap BUN Creatinine Est GFR ( Amer) Est GFR (Non-Af Amer) Random Glucose Calcium Total Bilirubin Direct Bilirubin AST ALT Alkaline Phosphatase Total Protein Albumin Globulin Albumin/Globulin Ratio Lipase Urine Color Yellow Urine Clarity Clear Urine pH 6.0 Ur Specific [place] 1.013 Urine Protein Negative Urine Glucose (UA) Normal Urine Ketones Negative Urine Blood Negative Urine Nitrate Negative Urine Bilirubin Negative Urine Urobilinogen Normal Ur Leukocyte Esterase Neg Urine WBC (Auto) 1 Urine RBC (Auto) < 1 Ur Squamous Epith Cells < 1 Urine HCG, Qual Negative 04/22/17 10:12 WBC RBC Hgb Hct MCV MCH MCHC RDW Plt Count MPV Neut % (Auto) Lymph % (Auto) [place] % (Auto) Eos % (Auto) Baso % (Auto) Neut # Lymph # [place] # Eos # Baso # PT INR APTT Sodium 134 Potassium 3.5 L Chloride 99 Carbon Dioxide 27 Anion Gap 12 BUN 11 Creatinine 0.9 Est GFR ( Amer) > 60 Est GFR (Non-Af Amer) > 60 Random Glucose 95 Calcium 8.3 L Total Bilirubin 0.4 Direct Bilirubin 0.2 AST 25 ALT 37 Alkaline Phosphatase 77 Total Protein 7.3 Albumin 3.8 Globulin 3.5 Albumin/Globulin Ratio 1.1 Lipase 180 Urine Color Urine Clarity Urine pH Ur Specific [place] Urine Protein Urine Glucose (UA) Urine Ketones Urine Blood Urine Nitrate Urine Bilirubin Urine Urobilinogen Ur Leukocyte Esterase Urine WBC (Auto) Urine RBC (Auto) Ur Squamous Epith Cells Urine HCG, Qual
[2017-04-22 20:35] VITALS: RESP 20
--- NOTE | 2017-04-23 06:48 | CP.PCM.CON ---
<Kareen Pacheco - Last Filed: 04/23/17 08:55> History of Present Illness - History of Present Illness History of Present Illness: PGY-2 GI consult note for Dr Saleh's service. Reason for consult: RUQ pain. Patient is a 46 y/o female with pmhx of htn, congenital heart disease, hydrocephalus s/p ventriculoperitoneal shunt, herpes ( on antiviral therapy) presenting with right upper quadrant abdominal pain which started yesterday in the morning. GI is consulted to evaluate the RUQ abdominal pain. Patient states she was at a friend's house when the pain started. The pain is sharp, intermittent, and radiates to the back and across the abdomen. Patient denies prior history of upper quadrant abdominal pain. Pain is not related to food. Patient took Motrin with no significant relief. Patient denies recent travel. Denies nausea, vomiting or diarrhea. States she's usually constipated, often has bowel movement once a week, last bowel movement was yesterday, no blood in the stool, and it was normal. Prior to last week, her last bowel movement was days ago. Denies history of contraceptive use. Patient denies recent weight loss, denies history of cancers. PMHx: htn, congenital heart disease, hydrocephalus s/p ventriculoperitoneal shunt, herpes ( on antiviral therapy) PSHx: x3, ventriculoperitoneal shunting, FMH: Dad had prostate cancer, from CABG complications, mom is 66 has CAD, ESRD, HTN and diabetes. Siblings with no medical problems. Social: Smokes 1-2 cigarettes a day for 14 years, quit about a month ago, denies alcohol and illicit drug use. Homeless Home meds: diovan, Norvasc, Colace, hctz, allopurinol, and antiviral ( don't know the name). Review of Systems - Review of Systems All systems: reviewed and no additional remarkable complaints except Review of Systems: 12 point ROS reviewed all negative except as per HPI. Past Patient History - Infectious Disease Hx of Infectious Diseases: None - Past Medical History & Family History Past Medical History?: Yes - Past Social History Smoking Status: Light Smoker < 10 Cigarettes Daily Alcohol: None Drugs: Denies Home Situation {Lives}: With Family - CARDIAC Hx Congestive Heart Failure: Yes Hx Hypercholesterolemia: Yes Hx Hypertension: Yes - PULMONARY Hx Respiratory Disorders: No - NEUROLOGICAL Hx Seizures: Yes - HEENT Hx HEENT Problems: Yes Other/Comment: V/P shunt - RENAL Hx Chronic Kidney Disease: No - ENDOCRINE/METABOLIC Hx Endocrine Disorders: No - HEMATOLOGICAL/ONCOLOGICAL Hx Blood Disorders: Yes Other/Comment: HERPES SIMPLEX - INTEGUMENTARY Hx Dermatological Problems: Yes Other/Comment: herpes - MUSCULOSKELETAL/RHEUMATOLOGICAL Hx Musculoskeletal Disorders: Yes Hx Falls: No Hx Gout: Yes - GASTROINTESTINAL Hx Gastrointestinal Disorders: Yes Hx Gastroesophageal Reflux: Yes - GENITOURINARY/GYNECOLOGICAL Hx Genitourinary Disorders: Yes Other/Comment: Herpes - PSYCHIATRIC Hx Substance Use: No - SURGICAL HISTORY Hx Surgeries: Yes Hx Section: Yes (1993,1994,1997) Other/Comment: cerebral, 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 evp managing director shunt 03/15 - ANESTHESIA Hx Anesthesia: Yes Hx Anesthesia Reactions: No Hx Malignant Hyperthermia: No Meds Allergies/Adverse Reactions: Allergies Allergy/AdvReac Type Severity Reaction Status Date / Time nyquil Allergy URTICARIA Uncoded 04/16/17 08:33 - Medications Medications: Current Medications Allopurinol (Zyloprim) 300 mg PO DAILY [facility] Amlodipine Besylate (Norvasc) 10 mg PO DAILY [facility] Docusate Sodium (Colace) 100 mg PO BID [facility] Hydrochlorothiazide (Hydrodiuril) 25 mg PO DAILY [facility] Losartan Potassium (Cozaar) 100 mg PO DAILY [facility] Morphine Sulfate (Morphine) 2 mg IVP Q4 PRN PRN Reason: Pain, severe (8-10) Last Admin: 04/22/17 20:45 Dose: 2 mg Pantoprazole Sodium (Protonix Ec Tab) 20 mg PO DAILY [facility] Potassium Chloride (Klor-Con 10) 10 meq PO BRK [facility] Physical Exam - Constitutional Appears: No Acute Distress, Older Than Stated Age - Head Exam Head Exam: ATRAUMATIC, NORMAL INSPECTION, NORMOCEPHALIC - Eye Exam Eye Exam: EOMI, Normal appearance, PERRL. absent: Scleral icterus - ENT Exam ENT Exam: Mucous Membranes Moist - Neck Exam Neck exam: Positive for: Normal Inspection - Respiratory Exam Respiratory Exam: Clear to Auscultation Bilateral, NORMAL BREATHING PATTERN. absent: Rales, Rhonchi, Wheezes, Respiratory Distress, Stridor - Cardiovascular Exam Cardiovascular Exam: REGULAR RHYTHM, RRR, +S1, +S2. absent: Bradycardia, Tachycardia, Systolic Murmur - GI/Abdominal Exam GI & Abdominal Exam: Guarding, Normal Bowel Sounds, Soft, Tenderness (ruq). absent: Diminished Bowel Sounds, Distended, Firm, Hyperactive Bowel Sounds, Hypoactive Bowel Sounds, Organomegaly, Rebound, Rigid Additional comments: + horizontal old surgical scar, + obese abdomen. - Extremities Exam Extremities exam: Positive for: normal inspection. Negative for: pedal edema - Back Exam Back exam: NORMAL INSPECTION - Neurological Exam Neurological exam: Alert, Oriented x3 - Psychiatric Exam Psychiatric exam: Anxious - Skin Skin Exam: Dry, Intact, Normal Color, Warm Results - Vital Signs Recent Vital Signs: Last Vital Signs Temp 97.5 F L 04/23/17 00:00 Pulse 63 04/23/17 00:00 Resp 20 04/23/17 00:00 BP 134/86 04/23/17 00:00 Pulse Ox 96 04/23/17 00:00 - Labs Result Diagrams: 04/22/17 10:12 04/22/17 10:12 Labs: Laboratory Results - last 24 hr 04/22/17 04/22/17 04/22/17 10:12 10:12 10:12 WBC 7.1 RBC 4.36 Hgb 13.2 Hct 38.9 MCV 89.2 MCH 30.3 MCHC 34.0 RDW 13.6 Plt Count 282 MPV 8.0 Neut % (Auto) 57.5 Lymph % (Auto) 33.2 [place] % (Auto) 7.4 Eos % (Auto) 1.3 Baso % (Auto) 0.6 Neut # 4.1 Lymph # 2.3 [place] # 0.5 Eos # 0.1 Baso # 0.0 PT 10.8 INR 1.0 APTT 28 Sodium Potassium Chloride Carbon Dioxide Anion Gap BUN Creatinine Est GFR ( Amer) Est GFR (Non-Af Amer) Random Glucose Calcium Total Bilirubin Direct Bilirubin AST ALT Alkaline Phosphatase Total Protein Albumin Globulin Albumin/Globulin Ratio Lipase Urine Color Yellow Urine Clarity Clear Urine pH 6.0 Ur Specific [place] 1.013 Urine Protein Negative Urine Glucose (UA) Normal Urine Ketones Negative Urine Blood Negative Urine Nitrate Negative Urine Bilirubin Negative Urine Urobilinogen Normal Ur Leukocyte Esterase Neg Urine WBC (Auto) 1 Urine RBC (Auto) < 1 Ur Squamous Epith Cells < 1 Urine HCG, Qual Negative 04/22/17 10:12 WBC RBC Hgb Hct MCV MCH MCHC RDW Plt Count MPV Neut % (Auto) Lymph % (Auto) [place] % (Auto) Eos % (Auto) Baso % (Auto) Neut # Lymph # [place] # Eos # Baso # PT INR APTT Sodium 134 Potassium 3.5 L Chloride 99 Carbon Dioxide 27 Anion Gap 12 BUN 11 Creatinine 0.9 Est GFR ( Amer) > 60 Est GFR (Non-Af Amer) > 60 Random Glucose 95 Calcium 8.3 L Total Bilirubin 0.4 Direct Bilirubin 0.2 AST 25 ALT 37 Alkaline Phosphatase 77 Total Protein 7.3 Albumin 3.8 Globulin 3.5 Albumin/Globulin Ratio 1.1 Lipase 180 Urine Color Urine Clarity Urine pH Ur Specific [place] Urine Protein Urine Glucose (UA) Urine Ketones Urine Blood Urine Nitrate Urine Bilirubin Urine Urobilinogen Ur Leukocyte Esterase Urine WBC (Auto) Urine RBC (Auto) Ur Squamous Epith Cells Urine HCG, Qual Assessment & Plan - Assessment and Plan (Free Text) Assessment: 46 y/o female pmhx of htn, congenital heart disease, chronic constipation, hydrocephalus s/p ventriculoperitoneal shunt, herpes, presenting with sharp right upper quadrant abdominal radiating diffusely. Patient had U/S with normal gallbladder, increased echogenicity of the liver likely fatty infiltration, and mild left renal hydronephrosis, CT with iv contrast with non specific hepatic dome enhancement. Normal labs including LFTs. 1- Abdominal pain likely due to chronic constipation, versus ruptured ovarian cysts versus adhesion due to past abdominal surgery. No nephrolithiasis on CT. 2- htn 3- herpes Plan: - Started on miralax 17 gm bid - monitor for bowel movement - Diet as tolerated - Recommending TACTICAL AIR DEFENSE CONTROLLER consult for evaluation. - Continue with ppi. - Medical management as per primary. Patient seen, examined and case discussed with Gi fellow and Dr Saleh. - Date & Time Date: 04/23/17 Time: 08:00 <Aníbal Saleh Y - Last Filed: 04/23/17 09:27> Meds - Medications Medications: Current Medications Allopurinol (Zyloprim) 300 mg PO DAILY [facility] Amlodipine Besylate (Norvasc) 10 mg PO DAILY [facility] Docusate Sodium (Colace) 100 mg PO BID [facility] Hydrochlorothiazide (Hydrodiuril) 25 mg PO DAILY [facility] Losartan Potassium (Cozaar) 100 mg PO DAILY [facility] Morphine Sulfate (Morphine) 2 mg IVP Q4 PRN PRN Reason: Pain, severe (8-10) Last Admin: 04/23/17 07:12 Dose: 2 mg Pantoprazole Sodium (Protonix Ec Tab) 20 mg PO DAILY [facility] Polyethylene Glycol (Miralax) 17 gm PO BID [facility] Potassium Chloride (Klor-Con 10) 10 meq PO BRK [facility] Last Admin: 04/23/17 08:39 Dose: 10 meq Results - Vital Signs Recent Vital Signs: Last Vital Signs Temp 97.9 F 04/23/17 08:14 Pulse 90 04/23/17 08:14 Resp 20 04/23/17 08:14 BP 98/66 L 04/23/17 08:14 Pulse Ox 97 04/23/17 08:14 - Labs Result Diagrams: 04/22/17 10:12 04/22/17 10:12 Labs: Laboratory Results - last 24 hr 04/22/17 04/22/17 04/22/17 10:12 10:12 10:12 WBC 7.1 RBC 4.36 Hgb 13.2 Hct 38.9 MCV 89.2 MCH 30.3 MCHC 34.0 RDW 13.6 Plt Count 282 MPV 8.0 Neut % (Auto) 57.5 Lymph % (Auto) 33.2 [place] % (Auto) 7.4 Eos % (Auto) 1.3 Baso % (Auto) 0.6 Neut # 4.1 Lymph # 2.3 [place] # 0.5 Eos # 0.1 Baso # 0.0 PT 10.8 INR 1.0 APTT 28 Sodium Potassium Chloride Carbon Dioxide Anion Gap BUN Creatinine Est GFR ( Amer) Est GFR (Non-Af Amer) Random Glucose Calcium Total Bilirubin Direct Bilirubin AST ALT Alkaline Phosphatase Total Protein Albumin Globulin Albumin/Globulin Ratio Lipase Urine Color Yellow Urine Clarity Clear Urine pH 6.0 Ur Specific [place] 1.013 Urine Protein Negative Urine Glucose (UA) Normal Urine Ketones Negative Urine Blood Negative Urine Nitrate Negative Urine Bilirubin Negative Urine Urobilinogen Normal Ur Leukocyte Esterase Neg Urine WBC (Auto) 1 Urine RBC (Auto) < 1 Ur Squamous Epith Cells < 1 Urine HCG, Qual Negative 04/22/17 10:12 WBC RBC Hgb Hct MCV MCH MCHC RDW Plt Count MPV Neut % (Auto) Lymph % (Auto) [place] % (Auto) Eos % (Auto) Baso % (Auto) Neut # Lymph # [place] # Eos # Baso # PT INR APTT Sodium 134 Potassium 3.5 L Chloride 99 Carbon Dioxide 27 Anion Gap 12 BUN 11 Creatinine 0.9 Est GFR ( Amer) > 60 Est GFR (Non-Af Amer) > 60 Random Glucose 95 Calcium 8.3 L Total Bilirubin 0.4 Direct Bilirubin 0.2 AST 25 ALT 37 Alkaline Phosphatase 77 Total Protein 7.3 Albumin 3.8 Globulin 3.5 Albumin/Globulin Ratio 1.1 Lipase 180 Urine Color Urine Clarity Urine pH Ur Specific [place] Urine Protein Urine Glucose (UA) Urine Ketones Urine Blood Urine Nitrate Urine Bilirubin Urine Urobilinogen Ur Leukocyte Esterase Urine WBC (Auto) Urine RBC (Auto) Ur Squamous Epith Cells Urine HCG, Qual Attending/Attestation - Attestation I have personally seen and examined this patient.: Yes I have fully participated in the care of the patient.: Yes I have reviewed all pertinent clinical information: Yes Notes (Text): 04/23/17 09:21 I have seen and examined patient with GI fellow and medical office secretary. Agree with above documentation with the following additions. 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 Prior to this she was in usual state of health. She describes a sharp 10/10 intensity right upper quadrant abdominal pain that radiates to back and associated with nausea. She denies vomiting, fever/chills, weight loss, rectal bleeding, or change in bowel habits. She is typically constipated, though had a soft bowel movement yesterday. The pain does not appear to be related to food consumption, she ate her breakfast tray today in entirety. No prior endoscopic evaluation. HTN Hydrocephalus s/p ELEVATORS INSPECTOR shunt Herpes simplex Chronic constipation Abdominal pain, RUQ - US and CT imaging reviewed by me showing no evidence of gallstones or biliary dilation. An abnormal region of enhancement on hepatic dome was noted. - Diet as tolerated - Pain control, though would avoid narcotic pain medication as this may worsen existing constipation - Obtain CT triple phase liver given region of abnormal enhancement seen on prior imaging along with patient RUQ abdominal pain - Initiate bowel regimen to prevent constipation - Continue with PPI therapy - Will continue to monitor patient clinical course
[2017-04-23] MEDS ORDERED: Potassium Chloride 10 mEq ER Tab PO SCH (08:00)
[2017-04-23] MEDS ORDERED: Enoxaparin 40 mg Syringe SC SCH (10:00)
[2017-04-23] MEDS: Pantoprazole 20 mg EC Tab PO SCH (10:47)
[2017-04-23] MEDS: POLYETHYLENE GLYCOL 3350 17 GM/Dose PACKET PO SCH ×2 (10:47→17:28)
--- NOTE | 2017-04-23 12:03 | CP.PCM.PN ---
Addendum entered and electronically signed by Bobo Mcgill DO 04/23/17 16:13: For pain pt started on Toradol 30mg IV Q6H PRN; will hold Lovenox at this time due to interaction. If pain recedes with BM will adjust meds and restart Lovenox. Will encourage ambulation. Addendum entered and electronically signed by Bobo Mcgill DO 04/23/17 16:08: Addendum: AM labs show hypokalemia (3.2) discontinued Kcl 10mg PO - repleted KDur 40mg PO x 2doses f/u AM labs Original Note: <Bobo Mcgill - Last Filed: 04/23/17 13:55> Subjective - Date & Time of Evaluation Date of Evaluation: 04/23/17 Time of Evaluation: 11:46 - Subjective Subjective: PGY-[address] Bang's service: Pt seen and examined at bedside. Nursing reports no acute events overnight. Patient states continued RUQ abdominal pain, that occasionally radiates to her back. She rates the pain "10/10," and describes it as a "dull stinging sensation." Patient states her last BM was yesterday, but she is "usually only goes every few days." She denies N/V, chest pain, palpitations, or headache. Objective - Vital Signs/Intake and Output Vital Signs (last 24 hours): Temp Pulse Resp BP Pulse Ox 97.9 F 65 20 114/70 97 04/23/17 08:14 04/23/17 10:46 04/23/17 08:14 04/23/17 10:46 04/23/17 08:14 Intake and Output: 04/23/17 04/23/17 06:59 18:59 Intake Total 360 Balance 360 - Medications Medications: Current Medications Allopurinol (Zyloprim) 300 mg PO DAILY [facility] Last Admin: 04/23/17 10:47 Dose: 300 mg Amlodipine Besylate (Norvasc) 10 mg PO DAILY [facility] Last Admin: 04/23/17 10:47 Dose: 10 mg Docusate Sodium (Colace) 100 mg PO BID [facility] Last Admin: 04/23/17 10:47 Dose: 100 mg Enoxaparin Sodium (Lovenox) 40 mg SC DAILY [facility] Last Admin: 04/23/17 10:47 Dose: 40 mg Hydrochlorothiazide (Hydrodiuril) 25 mg PO DAILY [facility] Last Admin: 04/23/17 10:47 Dose: 25 mg Losartan Potassium (Cozaar) 100 mg PO DAILY [facility] Last Admin: 04/23/17 10:47 Dose: 100 mg Morphine Sulfate (Morphine) 2 mg IVP Q4 PRN PRN Reason: Pain, severe (8-10) Last Admin: 04/23/17 07:12 Dose: 2 mg Pantoprazole Sodium (Protonix Ec Tab) 20 mg PO DAILY [facility] Last Admin: 04/23/17 10:47 Dose: 20 mg Polyethylene Glycol (Miralax) 17 gm PO BID [facility] Last Admin: 04/23/17 10:47 Dose: 17 gm Potassium Chloride (Klor-Con 10) 10 meq PO BRK [facility] Last Admin: 04/23/17 08:39 Dose: 10 meq - Labs Labs: 04/22/17 10:12 04/22/17 10:12 PT 10.8 SECONDS (9.7-12.2) 04/22/17 10:12 INR 1.0 04/22/17 10:12 APTT 28 SECONDS (21-34) 04/22/17 10:12 - Constitutional Appears: Non-toxic, No Acute Distress - Head Exam Head Exam: ATRAUMATIC, NORMAL INSPECTION - Eye Exam Eye Exam: EOMI, Normal appearance. absent: Scleral icterus Pupil Exam: PERRL - ENT Exam ENT Exam: Mucous Membranes Moist - Respiratory Exam Respiratory Exam: Clear to Ausculation Bilateral, NORMAL BREATHING PATTERN. absent: Rales, Rhonchi, Wheezes - Cardiovascular Exam Cardiovascular Exam: REGULAR RHYTHM, +S1, +S2 - GI/Abdominal Exam GI & Abdominal Exam: Soft, Tenderness (worst ruq, diffuse abd pain), Normal Bowel Sounds Additional comments: surgical scar noted RUQ; scar as well - Extremities Exam Extremities Exam: Normal Inspection. absent: Pedal Edema - Back Exam Back Exam: absent: CVA tenderness (L), CVA tenderness (R) - Neurological Exam Neurological Exam: Alert, Awake, Oriented x3 - Psychiatric Exam Psychiatric exam: Normal Affect, Normal Mood - Skin Skin Exam: Normal Color, Warm Assessment and Plan - Assessment and Plan (Free Text) Plan: Abdominal Pain Pt reports RUQ pain US Abd (04/22/17): Increased echogenicity of hepatic parenchymal cortex suggestive for fatty infiltration vs hepatic parenchymal disease. Correlate clinicaly. Mild hydronephrosis vs mild fullness of left renal collecting system. (see full report) CT A/P (04/22/17): Non-specific hepatic dome enhancement. May reflect transient hepatic perfusion however underlying neoplasm cannot be ruled out. Suggest three phase CT or MRI liver. Small free pelvic fluid. Lipase 180 (WNL) Dr. Saleh, GI treasury management sales consultant - f/u CT Triple phase liver - start bowel regimen, continue PPI - avoid narcotics as will make pain worse Discontinued Morphine 2mg IV Q4h PRN severe Chronic constipation Last BM yesterday AM Colace 100mg PO BID Miralax 17gm PO BID Hx Hydrocephalus s/p CAN RUNNER shunt (2014) HTN Well-controlled Norvasc 10mg PO Daily HCTZ 25mg PO daily Losartan 100mg PO Daily Hypokalemia KCl 10meq Daily 3.5 on admission f/u AM labs Prophylaxis HOLD Lovenox 40mg SC daily due to interaction w Toradol, will encourage ambulation Protonix 20mg PO Daily Heart healthy diet SCDs Bobo Mcgill PGY-2 All medical management per Dr. Bang <Nixon Bang S - Last Filed: 04/23/17 18:38> Objective - Vital Signs/Intake and Output Vital Signs (last 24 hours): Temp Pulse Resp BP Pulse Ox 97.6 F 66 20 110/69 97 04/23/17 16:30 04/23/17 16:30 04/23/17 16:30 04/23/17 16:30 04/23/17 16:30 Intake and Output: 04/23/17 04/23/17 06:59 18:59 Intake Total 360 500 Balance 360 500 - Medications Medications: Current Medications Allopurinol (Zyloprim) 300 mg PO DAILY [facility] Last Admin: 04/23/17 10:47 Dose: 300 mg Amlodipine Besylate (Norvasc) 10 mg PO DAILY [facility] Last Admin: 04/23/17 10:47 Dose: 10 mg Docusate Sodium (Colace) 100 mg PO BID [facility] Last Admin: 04/23/17 17:27 Dose: 100 mg Enoxaparin Sodium (Lovenox) 40 mg SC DAILY [facility] Last Admin: 04/23/17 10:47 Dose: 40 mg Hydrochlorothiazide (Hydrodiuril) 25 mg PO DAILY [facility] Last Admin: 04/23/17 10:47 Dose: 25 mg Ketorolac Tromethamine (Toradol) 30 mg IVP Q6 PRN PRN Reason: Pain, moderate (4-7) Losartan Potassium (Cozaar) 100 mg PO DAILY [facility] Last Admin: 04/23/17 10:47 Dose: 100 mg Pantoprazole Sodium (Protonix Ec Tab) 20 mg PO DAILY [facility] Last Admin: 04/23/17 10:47 Dose: 20 mg Pneumococcal Polyvalent Vaccine (Pneumovax 23 Vaccine) 0.5 ml IM .ONCE ONE Stop: 04/25/17 10:01 Polyethylene Glycol (Miralax) 17 gm PO BID [facility] Last Admin: 04/23/17 17:28 Dose: 17 gm - Labs Labs: 04/23/17 13:53 04/23/17 13:53 PT 10.8 SECONDS (9.7-12.2) 04/22/17 10:12 INR 1.0 04/22/17 10:12 APTT 28 SECONDS (21-34) 04/22/17 10:12 Attending/Attestation - Attestation I have personally seen and examined this patient.: Yes I have fully participated in the care of the patient.: Yes I have reviewed all pertinent clinical information, including history, physical exam and plan: Yes Notes (Text): 04/23/17 18:36 case seen and discused [facility] staff pt has been seen by treasury management sales consultant orderd ct scan or mri of liver as per consultatns simon as ordered 04/23/17 18:37
[2017-04-23 14:02] LABS: BASO % 0.4 % (0.0-2.0); EOS # 0.1 K/uL (0.0-0.7); EOS % 1.9 % (0.0-4.0); HEMOGLOBIN 13.6 g/dL (11.0-16.0); LYMPH # 2.9 K/uL (1.0-4.3); LYMPH % 41.7 % (20.0-40.0); MEAN CELL VOLUME 89.4 fL (81.0-99.0); MEAN CORPUSCULAR HEMOGLOBIN 30.4 pg (27.0-31.0); MEAN PLATELET VOLUME 7.7 fL (7.2-11.7); MONO # 0.5 K/uL (0.0-0.8); MONO % 7.4 % (0.0-10.0); NEUT # 3.4 K/uL (1.8-7.0); NEUT % 48.6 % (50.0-75.0); RBC 4.49 Mil/uL (3.80-5.20); RED CELL DISTRIBUTION WIDTH 13.4 % (11.5-14.5)
[2017-04-23] MEDS ORDERED: Iodixanol 320 mg/ml 150 ml Bottle IV ONE ×2 (14:29→15:24)
[2017-04-23 14:41] LABS: ALB/GLOB RATIO 1.1 (1.0-2.1); ALT/SGPT 40 U/L (9-52); AST/SGOT 38 U/L (14-36); BLOOD UREA NITROGEN 11 mg/dL (7-17); CALCIUM 8.8 mg/dl (8.6-10.4); GFR AFRICAN-AMERICAN > 60; GFR NON-AFRICAN AMERICAN > 60
[2017-04-23] MEDS: Potassium Chloride 20 mEq ER Tab PO SCH ×2 (16:24→17:33)
--- NOTE | 2017-04-23 16:28 | CP.PCM.PN ---
Subjective - Date & Time of Evaluation Date of Evaluation: 04/23/17 Time of Evaluation: 07:40 - Subjective Subjective: clinically same Objective - Vital Signs/Intake and Output Vital Signs (last 24 hours): Temp Pulse Resp BP Pulse Ox 97.9 F 65 20 114/70 97 04/23/17 08:14 04/23/17 10:46 04/23/17 08:14 04/23/17 10:46 04/23/17 08:14 Intake and Output: 04/23/17 04/23/17 06:59 18:59 Intake Total 360 Balance 360 - Medications Medications: Current Medications Allopurinol (Zyloprim) 300 mg PO DAILY [facility] Last Admin: 04/23/17 10:47 Dose: 300 mg Amlodipine Besylate (Norvasc) 10 mg PO DAILY [facility] Last Admin: 04/23/17 10:47 Dose: 10 mg Docusate Sodium (Colace) 100 mg PO BID [facility] Last Admin: 04/23/17 10:47 Dose: 100 mg Enoxaparin Sodium (Lovenox) 40 mg SC DAILY [facility] Last Admin: 04/23/17 10:47 Dose: 40 mg Hydrochlorothiazide (Hydrodiuril) 25 mg PO DAILY [facility] Last Admin: 04/23/17 10:47 Dose: 25 mg Ketorolac Tromethamine (Toradol) 30 mg IVP Q6 PRN PRN Reason: Pain, moderate (4-7) Losartan Potassium (Cozaar) 100 mg PO DAILY [facility] Last Admin: 04/23/17 10:47 Dose: 100 mg Pantoprazole Sodium (Protonix Ec Tab) 20 mg PO DAILY [facility] Last Admin: 04/23/17 10:47 Dose: 20 mg Pneumococcal Polyvalent Vaccine (Pneumovax 23 Vaccine) 0.5 ml IM .ONCE ONE Stop: 04/25/17 10:01 Polyethylene Glycol (Miralax) 17 gm PO BID [facility] Last Admin: 04/23/17 10:47 Dose: 17 gm Potassium Chloride (K-Dur 20 Meq Er Tab) 40 meq PO Q2H [facility] Stop: 04/23/17 18:16 - Labs Labs: 04/23/17 13:53 04/23/17 13:53 PT 10.8 SECONDS (9.7-12.2) 04/22/17 10:12 INR 1.0 04/22/17 10:12 APTT 28 SECONDS (21-34) 04/22/17 10:12 - Constitutional Appears: Well - Head Exam Head Exam: ATRAUMATIC, NORMAL INSPECTION, NORMOCEPHALIC - Eye Exam Eye Exam: EOMI, Normal appearance, PERRL Pupil Exam: NORMAL ACCOMODATION, PERRL - ENT Exam ENT Exam: Mucous Membranes Moist, Normal Exam - Neck Exam Neck Exam: Full ROM, Normal Inspection. absent: Lymphadenopathy - Respiratory Exam Respiratory Exam: Decreased Breath Sounds - Cardiovascular Exam Cardiovascular Exam: REGULAR RHYTHM, +S1, +S2 - GI/Abdominal Exam GI & Abdominal Exam: Soft, Diminished Bowel Sounds - Rectal Exam Rectal Exam: Deferred
--- NOTE | 2017-04-23 17:02 | CT ---
Liver protocol triple phase CT Indication: Abnormal hepatic dome enhancement on CT Technique: Contiguous axial images of the abdomen without & with IV contrast utilizing liver protocol. Coronal and Sagittal reformats generated and reviewed. This CT exam was performed using 1 or more of the following dose reduction techniques: Automated exposure control, adjustment of the MAA and/or kV according to patient size, and/or use of iterative reconstruction technique. Contrast: 100 mL Visipaque Radiation dose: Total exam DLP = 1348.53 MGy-cm. Comparison: CT of the abdomen pelvis with IV contrast performed 04/22/17. Findings: Partially imaged NETWORK SUPPORT TECHNICIAN shunt catheter. Visualized portions of the heart appear within normal limits of size. There is no visible consolidation, pleural effusion, or pneumothorax. Tiny nonspecific enhancement spanning approximately 6 mm at the hepatic dome. The spleen, kidneys, pancreas, adrenal glands, and gallbladder appear unremarkable. The stomach is nondistended. The included upper abdominal bowel loops appear within normal limits of caliber without evidence of intestinal obstruction. There is no definite free air. No acute osseous abnormality is detected. Impression: Tiny nonspecific enhancement noted at the hepatic dome on post-contrast images without focal abnormality evident on noncontrast images, nonspecific. Recommend six-month interval follow-up. Otherwise unremarkable study as above.
[2017-04-24 07:33] LABS: BASO % 0.3 % (0.0-2.0); EOS # 0.1 K/uL (0.0-0.7); EOS % 2.1 % (0.0-4.0); HEMOGLOBIN 14.2 g/dL (11.0-16.0); LYMPH # 2.3 K/uL (1.0-4.3); LYMPH % 39.7 % (20.0-40.0); MEAN CELL VOLUME 89.1 fL (81.0-99.0); MEAN CORPUSCULAR HGB CONC 34.8 g/dL (33.0-37.0); MONO # 0.4 K/uL (0.0-0.8); MONO % 7.4 % (0.0-10.0); NEUT % 50.5 % (50.0-75.0); RBC 4.58 Mil/uL (3.80-5.20); RED CELL DISTRIBUTION WIDTH 13.4 % (11.5-14.5); WHITE BLOOD COUNT 5.9 K/uL (4.8-10.8)
[2017-04-24 07:41] LABS: ALB/GLOB RATIO 1.1 (1.0-2.1); ALT/SGPT 41 U/L (9-52); AST/SGOT 27 U/L (14-36); BLOOD UREA NITROGEN 18 mg/dL (7-17); GFR AFRICAN-AMERICAN > 60; GFR NON-AFRICAN AMERICAN > 60; MAGNESIUM 2.1 mg/dL (1.6-2.3)
--- NOTE | 2017-04-24 07:58 | CP.PCM.PN ---
<Kareen Pacheco - Last Filed: 04/24/17 14:15> Subjective - Date & Time of Evaluation Date of Evaluation: 04/24/17 Time of Evaluation: 06:55 - Subjective Subjective: PG2- IM resident Gi progress note for Dr Mathew's service Patient was sleeping comfortably, in no acute distress. Upon awaking, patient started arching reaching toward her right upper quadrant, complaining of pain. States the abdominal pain has not improved, even with pain meds. Denies nausea, vomiting, diarrhea. No fever or chills. Patient is able to tolerate the regular diet. Patient had small bowel movement today. Objective - Vital Signs/Intake and Output Vital Signs (last 24 hours): Temp Pulse Resp BP Pulse Ox 98.2 F 60 20 115/71 97 04/24/17 00:00 04/24/17 00:00 04/24/17 00:00 04/24/17 00:00 04/24/17 00:25 Intake and Output: 04/24/17 04/24/17 06:59 18:59 Intake Total 360 Balance 360 - Medications Medications: Current Medications Allopurinol (Zyloprim) 300 mg PO DAILY [facility] Last Admin: 04/23/17 10:47 Dose: 300 mg Amlodipine Besylate (Norvasc) 10 mg PO DAILY [facility] Last Admin: 04/23/17 10:47 Dose: 10 mg Docusate Sodium (Colace) 100 mg PO BID [facility] Last Admin: 04/23/17 17:27 Dose: 100 mg Enoxaparin Sodium (Lovenox) 40 mg SC DAILY [facility] Last Admin: 04/23/17 10:47 Dose: 40 mg Hydrochlorothiazide (Hydrodiuril) 25 mg PO DAILY [facility] Last Admin: 04/23/17 10:47 Dose: 25 mg Ketorolac Tromethamine (Toradol) 30 mg IVP Q6 PRN PRN Reason: Pain, moderate (4-7) Last Admin: 04/24/17 02:28 Dose: 30 mg Losartan Potassium (Cozaar) 100 mg PO DAILY [facility] Last Admin: 04/23/17 10:47 Dose: 100 mg Pantoprazole Sodium (Protonix Ec Tab) 20 mg PO DAILY [facility] Last Admin: 04/23/17 10:47 Dose: 20 mg Pneumococcal Polyvalent Vaccine (Pneumovax 23 Vaccine) 0.5 ml IM .ONCE ONE Stop: 04/25/17 10:01 Polyethylene Glycol (Miralax) 17 gm PO BID [facility] Last Admin: 04/23/17 17:28 Dose: 17 gm - Labs Labs: 04/24/17 07:16 04/24/17 07:16 PT 10.8 SECONDS (9.7-12.2) 04/22/17 10:12 INR 1.0 04/22/17 10:12 APTT 28 SECONDS (21-34) 04/22/17 10:12 - Constitutional Appears: No Acute Distress - Head Exam Head Exam: ATRAUMATIC, NORMAL INSPECTION, NORMOCEPHALIC - Eye Exam Eye Exam: EOMI, Normal appearance, PERRL. absent: Scleral icterus Pupil Exam: NORMAL ACCOMODATION - ENT Exam ENT Exam: Mucous Membranes Moist - Neck Exam Neck Exam: Normal Inspection - Respiratory Exam Respiratory Exam: Clear to Ausculation Bilateral, NORMAL BREATHING PATTERN. absent: Rales, Rhonchi, Wheezes, Respiratory Distress, Stridor - Cardiovascular Exam Cardiovascular Exam: REGULAR RHYTHM, +S1, +S2. absent: Murmur - GI/Abdominal Exam GI & Abdominal Exam: Soft, Normal Bowel Sounds. absent: Distended, Firm, Guarding, Rigid, Tenderness, Hyperactive Bowel Sounds, Rebound Additional comments: Old surgical scar intact and clean. - Extremities Exam Extremities Exam: Normal Inspection. absent: Pedal Edema - Back Exam Back Exam: NORMAL INSPECTION - Neurological Exam Neurological Exam: Alert, Awake, Oriented x3 - Psychiatric Exam Psychiatric exam: Normal Affect, Normal Mood - Skin Skin Exam: Dry, Intact, Warm Assessment and Plan - Assessment and Plan (Free Text) Assessment: 46 y/o female pmhx of htn, congenital heart disease, chronic constipation, hydrocephalus s/p ventriculoperitoneal shunt, herpes, presenting with sharp right upper quadrant abdominal radiating diffusely. Patient had U/S with normal gallbladder, increased echogenicity of the liver likely fatty infiltration, and mild left renal hydronephrosis, CT with iv contrast with non specific hepatic dome enhancement. Normal labs including LFTs. Patient had triple phase liver given region of abnormal enhancement, with tiny non specific enhancement at the hepatic dome. 1- Abdominal pain likely due to chronic constipation 2- htn 3- herpes Plan: - Continue with bowel regimen- colace and miralax - Will add fleet enema - continue with ppi - Follow up in 6 months as outpatient for enhancement of hepatic dome. - Medical management as per primary. 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 <Drew Mathew - Last Filed: 04/24/17 15:38> Objective - Vital Signs/Intake and Output Vital Signs (last 24 hours): Temp Pulse Resp BP Pulse Ox 98.2 F 65 20 112/79 99 04/24/17 07:58 04/24/17 07:58 04/24/17 07:58 04/24/17 07:58 04/24/17 07:58 Intake and Output: 04/24/17 04/24/17 06:59 18:59 Intake Total 360 Balance 360 - Medications Medications: Current Medications Allopurinol (Zyloprim) 300 mg PO DAILY [facility] Last Admin: 04/24/17 10:59 Dose: 300 mg Amlodipine Besylate (Norvasc) 10 mg PO DAILY [facility] Last Admin: 04/24/17 10:59 Dose: 10 mg Docusate Sodium (Colace) 100 mg PO BID [facility] Last Admin: 04/24/17 10:59 Dose: 100 mg Enoxaparin Sodium (Lovenox) 40 mg SC DAILY [facility] Last Admin: 04/23/17 10:47 Dose: 40 mg Hydrochlorothiazide (Hydrodiuril) 25 mg PO DAILY [facility] Last Admin: 04/24/17 10:59 Dose: 25 mg Ketorolac Tromethamine (Toradol) 30 mg IVP Q6 PRN PRN Reason: Pain, moderate (4-7) Last Admin: 04/24/17 02:28 Dose: 30 mg Losartan Potassium (Cozaar) 100 mg PO DAILY [facility] Last Admin: 04/24/17 10:59 Dose: 100 mg Pantoprazole Sodium (Protonix Ec Tab) 20 mg PO DAILY [facility] Last Admin: 04/24/17 10:59 Dose: 20 mg Pneumococcal Polyvalent Vaccine (Pneumovax 23 Vaccine) 0.5 ml IM .ONCE ONE Stop: 04/25/17 10:01 Polyethylene Glycol (Miralax) 17 gm PO BID [facility] Last Admin: 04/24/17 10:59 Dose: 17 gm - Labs Labs: 04/24/17 07:16 04/24/17 07:16 PT 10.8 SECONDS (9.7-12.2) 04/22/17 10:12 INR 1.0 04/22/17 10:12 APTT 28 SECONDS (21-34) 04/22/17 10:12 Attending/Attestation - Attestation I have personally seen and examined this patient.: Yes I have fully participated in the care of the patient.: Yes I have reviewed all pertinent clinical information, including history, physical exam and plan: Yes Notes (Text): 04/24/17 15:36 46 year old female with abdominal pain and constipation. 1. Abdominal pain 2. Constipation 3. Liver lesion Plan: -liver lesion is small - recommend 6 month follow up exam -recommend bowel regimen/enema for constipation -continue ppi -suspect patient may have secondary gain as she seems fine when you walk in the door, then start writhing around dramatically in the bed when she sees someone come in -supportive measures for now
--- NOTE | 2017-04-24 09:20 | CP.PCM.PN ---
Subjective - Date & Time of Evaluation Date of Evaluation: 04/24/17 Time of Evaluation: 09:17 - Subjective Subjective: PGY2 progress note for Dr. Bang Pt seen and examined at bedside. Complaining of RUQ abd pain radiating to right flank. Denies having any N/V/D. No BM since yesterday. Pt tolerating diet tho. Denies having any CP, SOB, F/C. 12 point ROS negative except for the above mentioned. Objective - Vital Signs/Intake and Output Vital Signs (last 24 hours): Temp Pulse Resp BP Pulse Ox 98.2 F 65 20 112/79 99 04/24/17 07:58 04/24/17 07:58 04/24/17 07:58 04/24/17 07:58 04/24/17 07:58 Intake and Output: 04/24/17 04/24/17 06:59 18:59 Intake Total 360 Balance 360 - Medications Medications: Current Medications Allopurinol (Zyloprim) 300 mg PO DAILY [facility] Last Admin: 04/23/17 10:47 Dose: 300 mg Amlodipine Besylate (Norvasc) 10 mg PO DAILY [facility] Last Admin: 04/23/17 10:47 Dose: 10 mg Docusate Sodium (Colace) 100 mg PO BID [facility] Last Admin: 04/23/17 17:27 Dose: 100 mg Enoxaparin Sodium (Lovenox) 40 mg SC DAILY [facility] Last Admin: 04/23/17 10:47 Dose: 40 mg Hydrochlorothiazide (Hydrodiuril) 25 mg PO DAILY [facility] Last Admin: 04/23/17 10:47 Dose: 25 mg Ketorolac Tromethamine (Toradol) 30 mg IVP Q6 PRN PRN Reason: Pain, moderate (4-7) Last Admin: 04/24/17 02:28 Dose: 30 mg Losartan Potassium (Cozaar) 100 mg PO DAILY [facility] Last Admin: 04/23/17 10:47 Dose: 100 mg Pantoprazole Sodium (Protonix Ec Tab) 20 mg PO DAILY [facility] Last Admin: 04/23/17 10:47 Dose: 20 mg Pneumococcal Polyvalent Vaccine (Pneumovax 23 Vaccine) 0.5 ml IM .ONCE ONE Stop: 04/25/17 10:01 Polyethylene Glycol (Miralax) 17 gm PO BID [facility] Last Admin: 04/23/17 17:28 Dose: 17 gm - Labs Labs: 04/24/17 07:16 04/24/17 07:16 PT 10.8 SECONDS (9.7-12.2) 04/22/17 10:12 INR 1.0 04/22/17 10:12 APTT 28 SECONDS (21-34) 04/22/17 10:12 - Constitutional Appears: Non-toxic, No Acute Distress - Head Exam Head Exam: ATRAUMATIC - ENT Exam ENT Exam: Mucous Membranes Moist - Respiratory Exam Respiratory Exam: Clear to Ausculation Bilateral. absent: Accessory Muscle Use , Rales, Rhonchi, Wheezes, Respiratory Distress - Cardiovascular Exam Cardiovascular Exam: REGULAR RHYTHM, +S1, +S2. absent: Gallop, Rubs, Murmur - GI/Abdominal Exam GI & Abdominal Exam: Soft, Normal Bowel Sounds. absent: Distended, Firm, Guarding, Rigid, Tenderness, Organomegaly - Extremities Exam Extremities Exam: absent: Pedal Edema, Tenderness - Neurological Exam Neurological Exam: Alert, Awake, Oriented x3 - Psychiatric Exam Psychiatric exam: Normal Affect, Normal Mood - Skin Skin Exam: Dry, Intact, Normal Color, Warm Assessment and Plan - Assessment and Plan (Free Text) Assessment: Abdominal Pain -CT of liver triple phase: tiny nonspecific enhancement noted at hepatic dome on post-contrast images. Recs 6 month follow up -US Abd (04/22/17): Increased echogenicity of hepatic parenchymal cortex suggestive for fatty infiltration vs hepatic parenchymal disease. Correlate clinicaly. Mild hydronephrosis vs mild fullness of left renal collecting system. (see full report) -CT A/P (04/22/17): Non-specific hepatic dome enhancement. May reflect transient hepatic perfusion however underlying neoplasm cannot be ruled out. - -Lipase 180 (WNL) -Currently on toradol 30 mg IVP q6 prn -GI consulted and recs continuing bowel regimen, PPI and F/U triple phase liver CT in 6 months - Will consult WOOL CARDER as patient has history of herpes and RUQ Chronic constipation Colace 100mg PO BID Miralax 17gm PO BID Hx Hydrocephalus s/p SLEEVE TAILOR shunt (2014) HTN Well-controlled Norvasc 10mg PO Daily HCTZ 25mg PO daily Losartan 100mg PO Daily Hypokalemia resolved Prophylaxis HOLD Lovenox 40mg SC daily due to interaction w Toradol, will encourage ambulation Protonix 20mg PO Daily Heart healthy diet SCDs All medical management per Dr. Bang
[2017-04-24] MEDS: POLYETHYLENE GLYCOL 3350 17 GM/Dose PACKET PO SCH ×2 (10:59→17:28)
[2017-04-24] MEDS: Pantoprazole 20 mg EC Tab PO SCH (10:59)
--- NOTE | 2017-04-24 15:11 | CP.PCM.CON ---
History of Present Illness - History of Present Illness History of Present Illness: Gynecology consult note HPI: Patient is a 46 year old who presented to the hospital with complaints of RUQ pain that radiates to the right side and back. Gynecology consult was placed due to patient hx of herpes. During the encounter, patient denies recent outbreak of herpes as she is taking her antiviral medications as prescribed. Patient denies abnormal vaginal bleeding or discharge. 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 Siblings with no medical problems. Allergies: NKDA Medications: As per chart review Social Hx: Smokes 1-2 cigarettes a day for 14 years, quit about a month ago, denies alcohol and illicit drug use. Homeless Review of Systems - Constitutional Constitutional: absent: Chills, Fever - Gastrointestinal Gastrointestinal: Abdominal Pain. absent: Nausea, Vomiting - Genitourinary Genitourinary: absent: Dysuria, Hematuria, Pyuria - Reproductive: Female Reproductive:Female: Menses 1-7 Days. absent: Abnormal Vaginal Bleeding, Genital Lesions, Genital Pruritis, Vaginal Discharge, Vaginal Dryness, Vaginal Odor, Vaginal Pruritis Past Patient History - Infectious Disease Hx of Infectious Diseases: None - Past Medical History & Family History Past Medical History?: Yes - Past Social History Smoking Status: Light Smoker < 10 Cigarettes Daily Alcohol: None Drugs: Denies Home Situation {Lives}: With Family - CARDIAC Hx Congestive Heart Failure: Yes Hx Hypercholesterolemia: Yes Hx Hypertension: Yes - PULMONARY Hx Respiratory Disorders: No - NEUROLOGICAL Hx Seizures: Yes - HEENT Hx HEENT Problems: Yes Other/Comment: V/P shunt - RENAL Hx Chronic Kidney Disease: No - ENDOCRINE/METABOLIC Hx Endocrine Disorders: No - HEMATOLOGICAL/ONCOLOGICAL Hx Blood Disorders: Yes Other/Comment: HERPES SIMPLEX - INTEGUMENTARY Hx Dermatological Problems: Yes Other/Comment: herpes - MUSCULOSKELETAL/RHEUMATOLOGICAL Hx Musculoskeletal Disorders: Yes Hx Falls: No Hx Gout: Yes - GASTROINTESTINAL Hx Gastrointestinal Disorders: Yes Hx Gastroesophageal Reflux: Yes - GENITOURINARY/GYNECOLOGICAL Hx Genitourinary Disorders: Yes Other/Comment: Herpes - PSYCHIATRIC Hx Substance Use: No - SURGICAL HISTORY Hx Surgeries: Yes Hx Section: Yes (1993,1994,1997) Other/Comment: cerebral, 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 group marketing vp shunt 03/15 - ANESTHESIA Hx Anesthesia: Yes Hx Anesthesia Reactions: No Hx Malignant Hyperthermia: No Meds Allergies/Adverse Reactions: Allergies Allergy/AdvReac Type Severity Reaction Status Date / Time nyquil Allergy URTICARIA Uncoded 04/16/17 08:33 - Medications Medications: Current Medications Allopurinol (Zyloprim) 300 mg PO DAILY [facility] Last Admin: 04/24/17 10:59 Dose: 300 mg Amlodipine Besylate (Norvasc) 10 mg PO DAILY [facility] Last Admin: 04/24/17 10:59 Dose: 10 mg Docusate Sodium (Colace) 100 mg PO BID [facility] Last Admin: 04/24/17 10:59 Dose: 100 mg Enoxaparin Sodium (Lovenox) 40 mg SC DAILY [facility] Last Admin: 04/23/17 10:47 Dose: 40 mg Hydrochlorothiazide (Hydrodiuril) 25 mg PO DAILY [facility] Last Admin: 04/24/17 10:59 Dose: 25 mg Ketorolac Tromethamine (Toradol) 30 mg IVP Q6 PRN PRN Reason: Pain, moderate (4-7) Last Admin: 04/24/17 02:28 Dose: 30 mg Losartan Potassium (Cozaar) 100 mg PO DAILY [facility] Last Admin: 04/24/17 10:59 Dose: 100 mg Pantoprazole Sodium (Protonix Ec Tab) 20 mg PO DAILY [facility] Last Admin: 04/24/17 10:59 Dose: 20 mg Pneumococcal Polyvalent Vaccine (Pneumovax 23 Vaccine) 0.5 ml IM .ONCE ONE Stop: 04/25/17 10:01 Polyethylene Glycol (Miralax) 17 gm PO BID [facility] Last Admin: 04/24/17 10:59 Dose: 17 gm Physical Exam - Constitutional Appears: No Acute Distress - Head Exam Head Exam: ATRAUMATIC, NORMAL INSPECTION - Eye Exam Eye Exam: EOMI, Normal appearance - Respiratory Exam Respiratory Exam: Clear to Auscultation Bilateral, NORMAL BREATHING PATTERN - Cardiovascular Exam Cardiovascular Exam: REGULAR RHYTHM, +S1, +S2 - GI/Abdominal Exam GI & Abdominal Exam: Normal Bowel Sounds, Soft, Tenderness - Exam External exam: absent: Erythema, Swelling Speculum exam: absent: Vaginal Bleeding, Vaginal Discharge Bimanual exam: absent: Cervical Motion Tendernes - Neurological Exam Neurological exam: Alert, Oriented x3 - Skin Skin Exam: Normal Color Results - Vital Signs Recent Vital Signs: Last Vital Signs Temp 98.2 F 04/24/17 07:58 Pulse 65 04/24/17 07:58 Resp 20 04/24/17 07:58 BP 112/79 04/24/17 07:58 Pulse Ox 99 04/24/17 07:58 - Labs Result Diagrams: 04/24/17 07:16 04/24/17 07:16 Labs: Laboratory Results - last 24 hr 04/24/17 04/24/17 07:16 07:16 WBC 5.9 RBC 4.58 Hgb 14.2 Hct 40.8 MCV 89.1 MCH 31.0 MCHC 34.8 RDW 13.4 Plt Count 314 MPV 8.0 Neut % (Auto) 50.5 Lymph % (Auto) 39.7 Simpson % (Auto) 7.4 Eos % (Auto) 2.1 Baso % (Auto) 0.3 Neut # 3.0 Lymph # 2.3 Simpson # 0.4 Eos # 0.1 Baso # 0.0 Sodium 132 Potassium 3.8 Chloride 97 L Carbon Dioxide 27 Anion Gap 12 BUN 18 H Creatinine 1.0 Est GFR ( Amer) > 60 Est GFR (Non-Af Amer) > 60 Random Glucose 91 Calcium 9.0 Phosphorus 3.4 Magnesium 2.1 Total Bilirubin 0.6 AST 27 ALT 41 Alkaline Phosphatase 80 Total Protein 7.5 Albumin 4.0 Globulin 3.5 Albumin/Globulin Ratio 1.1 Assessment & Plan - Assessment and Plan (Free Text) Assessment: 46 year old who presented to the hospital with complaints of RUQ pain that radiates to the right side and back with hx of herpes and currently on antiviral therapy outpatient as per patient: Plan: 1. Stable 2. No gynecological intervention at this time 3. Follow up with capsule inspector provider outpatient 4. Plans discussed with attending Thank you for the consult Jerson Jarvis DO, PGY-1
--- NOTE | 2017-04-24 19:14 | CP.PCM.PN ---
Subjective - Date & Time of Evaluation Date of Evaluation: 04/24/17 Time of Evaluation: 07:20 - Subjective Subjective: clinically same Objective - Vital Signs/Intake and Output Vital Signs (last 24 hours): Temp Pulse Resp BP Pulse Ox 97.9 F 61 20 103/64 94 L 04/24/17 15:00 04/24/17 15:00 04/24/17 15:00 04/24/17 15:00 04/24/17 15:00 Intake and Output: 04/24/17 04/25/17 18:59 06:59 Intake Total 480 Balance 480 - Medications Medications: Current Medications Allopurinol (Zyloprim) 300 mg PO DAILY [facility] Last Admin: 04/24/17 10:59 Dose: 300 mg Amlodipine Besylate (Norvasc) 10 mg PO DAILY [facility] Last Admin: 04/24/17 10:59 Dose: 10 mg Docusate Sodium (Colace) 100 mg PO BID [facility] Last Admin: 04/24/17 17:27 Dose: 100 mg Enoxaparin Sodium (Lovenox) 40 mg SC DAILY [facility] Last Admin: 04/23/17 10:47 Dose: 40 mg Hydrochlorothiazide (Hydrodiuril) 25 mg PO DAILY [facility] Last Admin: 04/24/17 10:59 Dose: 25 mg Ketorolac Tromethamine (Toradol) 30 mg IVP Q6 PRN PRN Reason: Pain, moderate (4-7) Last Admin: 04/24/17 02:28 Dose: 30 mg Losartan Potassium (Cozaar) 100 mg PO DAILY [facility] Last Admin: 04/24/17 10:59 Dose: 100 mg Pantoprazole Sodium (Protonix Ec Tab) 20 mg PO DAILY [facility] Last Admin: 04/24/17 10:59 Dose: 20 mg Pneumococcal Polyvalent Vaccine (Pneumovax 23 Vaccine) 0.5 ml IM .ONCE ONE Stop: 04/25/17 10:01 Polyethylene Glycol (Miralax) 17 gm PO BID [facility] Last Admin: 04/24/17 17:28 Dose: Not Given - Labs Labs: 04/24/17 07:16 04/24/17 07:16 PT 10.8 SECONDS (9.7-12.2) 04/22/17 10:12 INR 1.0 04/22/17 10:12 APTT 28 SECONDS (21-34) 04/22/17 10:12
--- NOTE | 2017-04-25 07:08 | CP.PCM.PN ---
<Kareen Pacheco - Last Filed: 04/25/17 08:22> Subjective - Date & Time of Evaluation Date of Evaluation: 04/25/17 Time of Evaluation: 06:40 - Subjective Subjective: GI progress note for Dr Saleh's service. Patient was lying comfortably on the hospital bed, on her phone when we walked in, didn't appear to be in pain. Then patient started reaching toward her RUQ moaning in pain. Patient states she had small bowel movement around 3pm after getting the enema. Patient also had small bowel movement last night. Denies nausea or vomiting. Able to tolerate po intake. Patient states she's homeless, was thrown out of the longterm and can't go back there. Objective - Vital Signs/Intake and Output Vital Signs (last 24 hours): Temp Pulse Resp BP Pulse Ox 98.3 F 61 20 113/70 98 04/25/17 00:00 04/25/17 00:00 04/25/17 00:00 04/25/17 00:00 04/25/17 00:00 Intake and Output: 04/25/17 04/25/17 06:59 18:59 Intake Total 360 Balance 360 - Medications Medications: Current Medications Allopurinol (Zyloprim) 300 mg PO DAILY [facility] Last Admin: 04/24/17 10:59 Dose: 300 mg Amlodipine Besylate (Norvasc) 10 mg PO DAILY [facility] Last Admin: 04/24/17 10:59 Dose: 10 mg Docusate Sodium (Colace) 100 mg PO BID [facility] Last Admin: 04/24/17 17:27 Dose: 100 mg Enoxaparin Sodium (Lovenox) 40 mg SC DAILY [facility] Last Admin: 04/23/17 10:47 Dose: 40 mg Hydrochlorothiazide (Hydrodiuril) 25 mg PO DAILY [facility] Last Admin: 04/24/17 10:59 Dose: 25 mg Ketorolac Tromethamine (Toradol) 30 mg IVP Q6 PRN PRN Reason: Pain, moderate (4-7) Last Admin: 04/25/17 06:38 Dose: 30 mg Losartan Potassium (Cozaar) 100 mg PO DAILY [facility] Last Admin: 04/24/17 10:59 Dose: 100 mg Pantoprazole Sodium (Protonix Ec Tab) 20 mg PO DAILY [facility] Last Admin: 04/24/17 10:59 Dose: 20 mg Pneumococcal Polyvalent Vaccine (Pneumovax 23 Vaccine) 0.5 ml IM .ONCE ONE Stop: 04/25/17 10:01 Polyethylene Glycol (Miralax) 17 gm PO BID [facility] Last Admin: 04/24/17 17:28 Dose: Not Given - Labs Labs: 04/24/17 07:16 04/24/17 07:16 PT 10.8 SECONDS (9.7-12.2) 04/22/17 10:12 INR 1.0 04/22/17 10:12 APTT 28 SECONDS (21-34) 04/22/17 10:12 - Constitutional Appears: No Acute Distress, Chronically Ill - Head Exam Head Exam: ATRAUMATIC, NORMAL INSPECTION, NORMOCEPHALIC - Eye Exam Eye Exam: Normal appearance Pupil Exam: NORMAL ACCOMODATION - ENT Exam ENT Exam: Mucous Membranes Moist - Neck Exam Neck Exam: Normal Inspection - Respiratory Exam Respiratory Exam: Clear to Ausculation Bilateral, NORMAL BREATHING PATTERN. absent: Rales, Rhonchi, Wheezes, Respiratory Distress, Stridor - Cardiovascular Exam Cardiovascular Exam: REGULAR RHYTHM, +S1, +S2 - GI/Abdominal Exam GI & Abdominal Exam: Soft, Normal Bowel Sounds. absent: Distended, Firm, Guarding, Rigid, Tenderness - Extremities Exam Extremities Exam: Normal Inspection - Back Exam Back Exam: NORMAL INSPECTION - Neurological Exam Neurological Exam: Alert, Awake - Psychiatric Exam Psychiatric exam: Normal Affect, Normal Mood - Skin Skin Exam: Dry, Intact, Warm Assessment and Plan - Assessment and Plan (Free Text) Assessment: 46 y/o female pmhx of htn, congenital heart disease, chronic constipation, hydrocephalus s/p ventriculoperitoneal shunt, herpes, presenting with sharp right upper quadrant abdominal radiating diffusely. Patient had U/S with normal gallbladder, increased echogenicity of the liver likely fatty infiltration, and mild left renal hydronephrosis, CT with iv contrast with non specific hepatic dome enhancement. Normal labs including LFTs. Patient had triple phase liver given region of abnormal enhancement, with tiny non specific enhancement at the hepatic dome. 1. Abdominal pain 2. Constipation 3. Liver lesion Plan: - Patient had bowel movement and is eating - will give another fleet water enema - Continue with miralax and colace. - No GI intervention at this time - Follow up in 6 months for imaging of the liver lesion. - Consider social work eval, patient states she's homeless and doesn't have family. - Please call/page if you have any questions. Patient seen, examined and case discussed with Dr Saleh. <Aníbal Saleh - Last Filed: 04/25/17 12:53> Objective - Vital Signs/Intake and Output Vital Signs (last 24 hours): Temp Pulse Resp BP Pulse Ox 98.9 F 63 20 118/77 98 04/25/17 07:46 04/25/17 07:46 04/25/17 07:46 04/25/17 07:46 04/25/17 07:46 Intake and Output: 04/25/17 04/25/17 06:59 18:59 Intake Total 360 Balance 360 - Medications Medications: Current Medications Allopurinol (Zyloprim) 300 mg PO DAILY [facility] Last Admin: 04/25/17 10:51 Dose: 300 mg Amlodipine Besylate (Norvasc) 10 mg PO DAILY [facility] Last Admin: 04/25/17 10:52 Dose: 10 mg Docusate Sodium (Colace) 100 mg PO BID [facility] Last Admin: 04/25/17 10:51 Dose: 100 mg Enoxaparin Sodium (Lovenox) 40 mg SC DAILY [facility] Last Admin: 04/23/17 10:47 Dose: 40 mg Hydrochlorothiazide (Hydrodiuril) 25 mg PO DAILY [facility] Last Admin: 04/25/17 10:51 Dose: 25 mg Ketorolac Tromethamine (Toradol) 30 mg IVP Q6 PRN PRN Reason: Pain, moderate (4-7) Last Admin: 04/25/17 06:38 Dose: 30 mg Losartan Potassium (Cozaar) 100 mg PO DAILY [facility] Last Admin: 04/25/17 10:52 Dose: 100 mg Pantoprazole Sodium (Protonix Ec Tab) 20 mg PO DAILY [facility] Last Admin: 04/25/17 10:52 Dose: 20 mg Polyethylene Glycol (Miralax) 17 gm PO BID [facility] Last Admin: 04/25/17 11:00 Dose: 17 gm - Labs Labs: 04/25/17 07:42 04/25/17 07:42 PT 10.8 SECONDS (9.7-12.2) 04/22/17 10:12 INR 1.0 04/22/17 10:12 APTT 28 SECONDS (21-34) 04/22/17 10:12 Attending/Attestation - Attestation I have personally seen and examined this patient.: Yes I have fully participated in the care of the patient.: Yes I have reviewed all pertinent clinical information, including history, physical exam and plan: Yes Notes (Text): 04/25/17 12:50 I have seen and examined patient with GI fellow and medical billing specialist. No acute events overnight, she still continues to endorse generalized abdominal pain and constipation, though she is tolerating PO diet without any difficulty. She denies nausea, vomiting, fever/chills. Review of vitals from today are normal. 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 Will sign off case, please reconsult as necessary, thank you.
[2017-04-25 08:05] LABS: BASO % 0.4 % (0.0-2.0); EOS # 0.1 K/uL (0.0-0.7); EOS % 1.6 % (0.0-4.0); HEMOGLOBIN 13.7 g/dL (11.0-16.0); LYMPH # 1.9 K/uL (1.0-4.3); LYMPH % 32.1 % (20.0-40.0); MEAN CELL VOLUME 89.4 fL (81.0-99.0); MEAN CORPUSCULAR HEMOGLOBIN 31.2 pg (27.0-31.0); MEAN CORPUSCULAR HGB CONC 34.8 g/dL (33.0-37.0); MONO # 0.5 K/uL (0.0-0.8); MONO % 7.7 % (0.0-10.0); NEUT # 3.5 K/uL (1.8-7.0); NEUT % 58.2 % (50.0-75.0); RBC 4.4 Mil/uL (3.80-5.20); RED CELL DISTRIBUTION WIDTH 13.3 % (11.5-14.5)
[2017-04-25 08:39] LABS: ALB/GLOB RATIO 1.2 (1.0-2.1); ALBUMIN 3.8 g/dL (3.5-5.0); ALT/SGPT 43 U/L (9-52); AST/SGOT 28 U/L (14-36); BLOOD UREA NITROGEN 16 mg/dL (7-17); CALCIUM 8.6 mg/dl (8.6-10.4); GFR AFRICAN-AMERICAN > 60; GFR NON-AFRICAN AMERICAN > 60; MAGNESIUM 2.1 mg/dL (1.6-2.3)
--- NOTE | 2017-04-25 09:48 | CP.PCM.PN ---
Subjective - Date & Time of Evaluation Date of Evaluation: 04/25/17 Time of Evaluation: 09:45 - Subjective Subjective: PGY2 progress note for Dr. Bang Pt s&e @ bedside. No acute events overnight. Pt is resting comfortably watching tv during exam. Pt continues to c/o of RUQ abdominal pain 01/08. Denies having any N/V/D/C, CP, SOB. Pt tolerating diet. Pt had 3 well formed BMs yesterday. 12 point ROS negative except for above mentioned. Objective - Vital Signs/Intake and Output Vital Signs (last 24 hours): Temp Pulse Resp BP Pulse Ox 98.9 F 63 20 118/77 98 04/25/17 07:46 04/25/17 07:46 04/25/17 07:46 04/25/17 07:46 04/25/17 07:46 Intake and Output: 04/25/17 04/25/17 06:59 18:59 Intake Total 360 Balance 360 - Medications Medications: Current Medications Allopurinol (Zyloprim) 300 mg PO DAILY [facility] Last Admin: 04/24/17 10:59 Dose: 300 mg Amlodipine Besylate (Norvasc) 10 mg PO DAILY [facility] Last Admin: 04/24/17 10:59 Dose: 10 mg Docusate Sodium (Colace) 100 mg PO BID [facility] Last Admin: 04/24/17 17:27 Dose: 100 mg Enoxaparin Sodium (Lovenox) 40 mg SC DAILY [facility] Last Admin: 04/23/17 10:47 Dose: 40 mg Hydrochlorothiazide (Hydrodiuril) 25 mg PO DAILY [facility] Last Admin: 04/24/17 10:59 Dose: 25 mg Ketorolac Tromethamine (Toradol) 30 mg IVP Q6 PRN PRN Reason: Pain, moderate (4-7) Last Admin: 04/25/17 06:38 Dose: 30 mg Losartan Potassium (Cozaar) 100 mg PO DAILY [facility] Last Admin: 04/24/17 10:59 Dose: 100 mg Pantoprazole Sodium (Protonix Ec Tab) 20 mg PO DAILY [facility] Last Admin: 04/24/17 10:59 Dose: 20 mg Pneumococcal Polyvalent Vaccine (Pneumovax 23 Vaccine) 0.5 ml IM .ONCE ONE Stop: 04/25/17 10:01 Polyethylene Glycol (Miralax) 17 gm PO BID [facility] Last Admin: 04/24/17 17:28 Dose: Not Given - Labs Labs: 04/25/17 07:42 04/25/17 07:42 PT 10.8 SECONDS (9.7-12.2) 04/22/17 10:12 INR 1.0 04/22/17 10:12 APTT 28 SECONDS (21-34) 04/22/17 10:12 - Constitutional Appears: Non-toxic, No Acute Distress - Head Exam Head Exam: ATRAUMATIC, NORMAL INSPECTION - ENT Exam ENT Exam: Mucous Membranes Moist, Normal Exam - Respiratory Exam Respiratory Exam: Clear to Ausculation Bilateral, NORMAL BREATHING PATTERN. absent: Rales, Rhonchi, Wheezes - Cardiovascular Exam Cardiovascular Exam: REGULAR RHYTHM, +S1, +S2. absent: Gallop, Rubs, Murmur - GI/Abdominal Exam GI & Abdominal Exam: Soft, Normal Bowel Sounds. absent: Distended, Firm, Guarding, Rigid, Tenderness, Organomegaly, Rebound - Neurological Exam Neurological Exam: Alert, Awake, Normal Gait (patient is seen walking around room ), Oriented x3 - Psychiatric Exam Psychiatric exam: Normal Affect, Normal Mood - Skin Skin Exam: Dry, Intact, Normal Color, Warm Assessment and Plan - Assessment and Plan (Free Text) Assessment: Abdominal Pain -CT of liver triple phase: tiny nonspecific enhancement noted at hepatic dome on post-contrast images. Recs 6 month follow up -US Abd (04/22/17): Increased echogenicity of hepatic parenchymal cortex suggestive for fatty infiltration vs hepatic parenchymal disease. Correlate clinicaly. Mild hydronephrosis vs mild fullness of left renal collecting system. (see full report) -CT A/P (04/22/17): Non-specific hepatic dome enhancement. May reflect transient hepatic perfusion however underlying neoplasm cannot be ruled out. - -Lipase 180 (WNL) -Currently on toradol 30 mg IVP q6 prn -GI consulted and recs continuing bowel regimen, PPI and F/U triple phase liver CT in 6 months -[employer] consulted yesterday. No intervention at this point and recommend F/U O/P for further evaluation - Patient tolerating diet and having regular BMs. Patient clinically appears to have improved. Chronic constipation - Resolved Hx Hydrocephalus s/p RADIATION ONCOLOGY NURSE shunt (2014) HTN Well-controlled Norvasc 10mg PO Daily HCTZ 25mg PO daily Losartan 100mg PO Daily Hypokalemia resolved Prophylaxis HOLD Lovenox 40mg SC daily due to interaction w Toradol, will encourage ambulation Protonix 20mg PO Daily Heart healthy diet SCDs All medical management per Dr. Bang Patient is stable for discharge per Dr. Bang Patient is to follow up with PMD upon discharge. Patient is to follow up with gastroentrologist upon discharge. Referral provided for patient. Patient is to follow up with carrier packer upon discharge. Patient will need a repeat liver CT scan in 6 months. Continue home medications as prescribed.
[2017-04-25] MEDS ORDERED: Pneumococcal 23-Valent Vaccine IM ONE (10:00)
[2017-04-25] MEDS ORDERED: Influenza Vaccine 60 mcg/0.5 mL SYR (4YR UP) IM ONE (10:00)
[2017-04-25] MEDS: Pantoprazole 20 mg EC Tab PO SCH (10:52)
[2017-04-25] MEDS: POLYETHYLENE GLYCOL 3350 17 GM/Dose PACKET PO SCH (11:00)
--- NOTE | 2017-04-25 11:47 | CP.PCM.PN ---
Subjective - Date & Time of Evaluation Date of Evaluation: 04/25/17 Time of Evaluation: 07:20 - Subjective Subjective: clinically same Objective - Vital Signs/Intake and Output Vital Signs (last 24 hours): Temp Pulse Resp BP Pulse Ox 98.9 F 63 20 118/77 98 04/25/17 07:46 04/25/17 07:46 04/25/17 07:46 04/25/17 07:46 04/25/17 07:46 Intake and Output: 04/25/17 04/25/17 06:59 18:59 Intake Total 360 Balance 360 - Medications Medications: Current Medications Allopurinol (Zyloprim) 300 mg PO DAILY [facility] Last Admin: 04/24/17 10:59 Dose: 300 mg Amlodipine Besylate (Norvasc) 10 mg PO DAILY [facility] Last Admin: 04/24/17 10:59 Dose: 10 mg Docusate Sodium (Colace) 100 mg PO BID [facility] Last Admin: 04/24/17 17:27 Dose: 100 mg Enoxaparin Sodium (Lovenox) 40 mg SC DAILY [facility] Last Admin: 04/23/17 10:47 Dose: 40 mg Hydrochlorothiazide (Hydrodiuril) 25 mg PO DAILY [facility] Last Admin: 04/24/17 10:59 Dose: 25 mg Ketorolac Tromethamine (Toradol) 30 mg IVP Q6 PRN PRN Reason: Pain, moderate (4-7) Last Admin: 04/25/17 06:38 Dose: 30 mg Losartan Potassium (Cozaar) 100 mg PO DAILY [facility] Last Admin: 04/24/17 10:59 Dose: 100 mg Pantoprazole Sodium (Protonix Ec Tab) 20 mg PO DAILY [facility] Last Admin: 04/24/17 10:59 Dose: 20 mg Polyethylene Glycol (Miralax) 17 gm PO BID [facility] Last Admin: 04/24/17 17:28 Dose: Not Given - Labs Labs: 04/25/17 07:42 04/25/17 07:42 PT 10.8 SECONDS (9.7-12.2) 04/22/17 10:12 INR 1.0 04/22/17 10:12 APTT 28 SECONDS (21-34) 04/22/17 10:12 - Constitutional Appears: Well - Head Exam Head Exam: ATRAUMATIC, NORMAL INSPECTION, NORMOCEPHALIC - Eye Exam Eye Exam: EOMI, Normal appearance, PERRL Pupil Exam: NORMAL ACCOMODATION, PERRL - ENT Exam ENT Exam: Mucous Membranes Moist, Normal Exam - Neck Exam Neck Exam: Full ROM, Normal Inspection. absent: Lymphadenopathy - Respiratory Exam Respiratory Exam: Decreased Breath Sounds - Cardiovascular Exam Cardiovascular Exam: REGULAR RHYTHM, +S1, +S2 - GI/Abdominal Exam GI & Abdominal Exam: Soft, Diminished Bowel Sounds - Rectal Exam Rectal Exam: Deferred
[2017-04-25 15:46] VITALS: BP 107/69; PULSE 62; TEMP 98.1; O2SAT 94
== END 2017-04-25 16:27 | disposition home or self-care (01) | DRG 182 ==
LOC: C.ER 09:01 → C.9E 17:52 → C.3T 18:42 → OBSVTOIN 04-24 21:11
PROVIDERS: ADMIT Internal Medicine Nephrology; ATTEND Internal Medicine Nephrology
DX: K59.09 Other constipation (principal); E87.6 Hypokalemia; K76.0 Fatty (change of) liver, not elsewhere classified; I50.9 Heart failure, unspecified; G91.9 Hydrocephalus, unspecified; I11.0 Hypertensive heart disease with heart failure; N13.30 Unspecified hydronephrosis; K21.9 Gastro-esophageal reflux disease without esophagitis; E78.00 Pure hypercholesterolemia, unspecified; B00.9 Herpesviral infection, unspecified; Z98.2 Presence of cerebrospinal fluid drainage device; Z87.891 Personal history of nicotine dependence; Z59.0 Homelessness

== ENCOUNTER 2017-06-06 15:39 | Emergency (ER) | payer MEDICAID ==
[2017-06-06 15:42] VITALS: BMI 27.4
[2017-06-06 15:46] VITALS: RESP 20
[2017-06-06] MEDS ORDERED: Oxycodone/Acetaminophen 5/325 mg Tab PO STA (16:30)
--- NOTE | 2017-06-06 16:46 | C.PDOC ---
History Of Present Illness 46 year old female presents to ER with complaints of right flank and knee pain after slip and fall in the snow today. Patient reports twisting her knee and falling onto right side at 1400 today. Patient applied ice to areas, did not take analgesic and came to ED for evaluation. Patient denies any head injury, LOC, arm wrist or hand injury or pain. Patient has no other injuries. uncomfortable ls spine: mild tenderness right lumbar area - HPI Time Seen by Provider: 06/06/17 16:19 Chief Complaint (Nursing): Lower Extremity Problem/Injury History Per: Patient History/Exam Limitations: no limitations Onset/Duration Of Symptoms: Hrs Past Medical History Reviewed: Historical Data, Nursing Documentation, Vital Signs Vital Signs: Last Vital Signs Temp 98.2 F 06/06/17 15:43 Pulse 70 06/06/17 15:43 Resp 20 06/06/17 15:43 BP 102/63 06/06/17 15:43 Pulse Ox 97 06/06/17 17:15 - Medical History PMH: CHF, HTN, Hypercholesterolemia, Seizures, Chronic Pain (right hip secondary to surgery) Surgical History: No Surg Hx - [facility] Procedures BYPASS CEREB VENT TO PERITON CAV W SYNTH SUB, PERC (03/15/15) Family History: States: No Known Family Hx - Social History Hx Tobacco Use: No Hx Alcohol Use: No Hx Substance Use: No - Immunization History Hx Tetanus Toxoid Vaccination: No Hx Influenza Vaccination: No Hx Pneumococcal Vaccination: No Review Of Systems Gastrointestinal: Negative for: Nausea, Vomiting Musculoskeletal: Positive for: Leg Pain, Other (flank pain) Skin: Negative for: Rash Neurological: Negative for: Weakness, Numbness Physical Exam - Physical Exam Appears: Non-toxic, Other (Uncomfortable) Skin: Warm, Dry Head: Atraumatic, Normacephalic Eye(s): bilateral: Normal Inspection Oral Mucosa: Moist Neck: Normal ROM, Supple Cardiovascular: Rhythm Regular, No Murmur Respiratory: Normal Breath Sounds, No Rales, No Rhonchi, No Wheezing Gastrointestinal/Abdominal: Soft, No Tenderness, No Guarding, No Rebound Back: No CVA Tenderness, Other (mild tenderness right lumbar area) 1 - mild swelling, tenderness and 2cm ecchymotic lesion Extremity: Capillary Refill (<2 seconds), No Deformity, Other (right knee with tenderness anteriorly, non-focal, noswelling. no erythema, no ecchymosis, no laxity on valgus/varus stress) Neurological/Psych: Oriented x3 ED Course And Treatment O2 Sat by Pulse Oximetry: 97 (RA) Medical Decision Making Medical Decision Making: Impression: knee pain, flank pain Plan: Percocet, xray right knee, ribs and LS spine. Progress: Xray viewed by me showing Re-Eval: Recommend rest ice and analgesics. Follow up with orthopedic if the symptoms persist Disposition Counseled Patient/Family Regarding: Studies Performed, Diagnosis, Need For Followup, Rx Given - Disposition Referrals: Michael Coombs MD [Medical Doctor] - Disposition: HOME/ ROUTINE Disposition Time: 17:22 Condition: IMPROVED Additional Instructions: Your xrays were normal shows no fractures. Take Tylenol 500mg or Ibuprofen for pain every 6-8 hours as needed, with food to not upset stomach Take Tramadol for severe pain Can apply ice to area Follow up with your doctor or orthopedic if the pain continues and persists Return to the emergency department at any time if symptoms persist or worsen. Thank you for allowing the [facility] team to be part of your care today. You were seen by ASHLYN Nava Khalida radiografas estevan normales y no muestran fracturas. [place] Tylenol 500 mg o ibuprofeno para el dolor cada 6-8 horas segn sea necesario, con alimentos para no molestar el estmago [place] Tramadol para el dolor artur Puede aplicar hielo en el emerita Cyn un seguimiento con lim mdico u ortopdico si el dolor contina y persiste Regrese al departamento de emergencia en cualquier momento si los sntomas persisten o empeoran. Olga por permitir que el equipo de [facility] sea parte de lim cuidado hoy. Fuiste visto por PA Nava Prescriptions: Ibuprofen [Motrin] 600 mg PO Q8 #30 tab traMADol [Ultram] 50 mg PO Q8 PRN #15 tab PRN Reason: Pain, Severe (8-10) Instructions: Contusion (DC) Forms: [employer] ([place]i) Print Language: [place] - POA Present On Arrival: Falls Or Trauma - Clinical Impression Clinical Impression: Back contusion, Knee strain - PA / PASSENGER SERVICE MANAGER / Resident Statement MD/DO has reviewed & agrees with the documentation as recorded. - Scribe Statement The provider has reviewed the documentation as recorded by the Ambika Garzon All medical record entries made by the Ambika were at my direction and personally dictated by me. I have reviewed the chart and agree that the record accurately reflects my personal performance of the history, physical exam, medical decision making, and the department course for this patient. I have also personally directed, reviewed, and agree with the discharge instructions and disposition.
[2017-06-06] MEDS ORDERED: Oxycodone/Acetaminophen 5/325 mg Tab ONE (17:05)
--- NOTE | 2017-06-06 17:06 | RAD ---
PROCEDURE: Radiographs of the Lumbar Spine. HISTORY: pain s.p slip and fall COMPARISON: No prior. FINDINGS: BONES: Normal alignment. No listhesis. No fracture. L4 and L5 endplate mild ridging suggested. L5-S1 disc space narrowing and ir rudimentary disc/transitional elements here DISC SPACES: L5-S1 disc space narrowing OTHER FINDINGS: A partially visualized right ocular peritoneal assumed shunt is present -the tip is projecting over the right L4 transverse process region IMPRESSION: No fracture. Mild spondylolysis.
--- NOTE | 2017-06-06 17:08 | RAD ---
PROCEDURE: Right Knee Radiographs. HISTORY: pain s.p slip and fall COMPARISON: None. FINDINGS: BONES: Normal. No fracture. JOINTS: Medial femoral tibial an patellofemoral joint space narrowing. JOINT EFFUSION: None. OTHER FINDINGS: None. IMPRESSION: No fracture. Mild joint space narrowing consistent with early senescent changes
--- NOTE | 2017-06-06 17:10 | RAD ---
PROCEDURE: Radiographs of the Chest and Right Ribs. HISTORY: pain s.p slip and fall COMPARISON: None available. TECHNIQUE: Frontal radiograph of the chest and multiple oblique radiographs of the right ribs were obtained. FINDINGS: RIGHT RIBS: No fracture or focal lesion visualized. LUNGS: Clear. PLEURA: No pneumothorax or pleural fluid. CARDIOVASCULAR: Normal sized heart. No pulmonary vascular congestion. OTHER FINDINGS: right-sided ventriculoperitoneal shunt. IMPRESSION: right-sided ventriculoperitoneal shunt. Otherwise unremarkable radiographs of the chest and right ribs. No right rib fracture.
[2017-06-06 17:35] VITALS: BP 127/80; PULSE 64; TEMP 98; O2SAT 96
== END 2017-06-06 17:39 | disposition home or self-care (01) ==
LOC: C.ER 15:39
DX: S30.0XXA Contusion of lower back and pelvis, initial encounter (principal); W00.0XXA Fall on same level due to ice and snow, initial encounter; S86.911A Strain of unspecified muscle(s) and tendon(s) at lower leg level, right leg, initial encounter; I10 Essential (primary) hypertension; E78.00 Pure hypercholesterolemia, unspecified; I50.9 Heart failure, unspecified

== ENCOUNTER 2018-04-04 21:31 | Emergency (ER) | payer MEDICAID ==
[2018-04-04 21:31] VITALS: BMI 30.9
[2018-04-04] MEDS ORDERED: Sodium Chloride 0.9% 1,000 ML IV ONE (23:46)
--- NOTE | 2018-04-04 23:55 | C.PDOC ---
History Of Present Illness 47 year old female presents to the ED c/o dry cough for the past several days. Patient called her PMD's office this morning and called a steroid and Zithromax. Patient took the new medications tonight around 20:00 and afterwards felt dizzy. Patient describes the dizziness as lightheaded feeling. Patient also feels like she was going to pass out. Patient states someone else at the custodial she lives found her and called EMS. Patient is now alert and oriented, currently complaining of dizziness. Patient also c/o dysuria. Patient denies fever, chills, nausea, vomit, diarrhea, rash, weakness, numbness. <Nava Skelton - Last Filed: 04/05/18 13:50> <Lynn Angulo - Last Filed: 04/05/18 03:08> History Per: Patient History/Exam Limitations: no limitations Onset/Duration Of Symptoms: Hrs Current Symptoms Are (Timing): Still Present Associated Symptoms Preceding Syncopal Episode: Lightheadedness Seizure Or Post-ictal Symptoms: None Possible Causative Factor(s): New Medications Fall Associated With With Symptoms: No Severity: None Recent travel outside of the [place]: No Additional History Per: Patient <Tucker Skeltonyolis Sharp - Last Filed: 04/05/18 13:50> Time Seen by Provider: 04/04/18 23:16 Chief Complaint (Nursing): Dizziness/Lightheaded Past Medical History Vital Signs: Last Vital Signs Temp 97.6 F 04/04/18 22:18 Pulse 74 04/04/18 22:18 Resp 18 04/04/18 22:18 BP 118/72 04/04/18 22:18 Pulse Ox 96 04/05/18 00:02 - [facility] Procedures BYPASS CEREB VENT TO PERITON CAV W SYNTH SUB, PERC (03/15/15) <Lynn Angulo - Last Filed: 04/05/18 03:08> Reviewed: Historical Data, Nursing Documentation, Vital Signs Vital Signs: Last Vital Signs Temp 97.6 F 04/04/18 22:18 Pulse 74 04/04/18 22:18 Resp 18 04/04/18 22:18 BP 118/72 04/04/18 22:18 Pulse Ox 96 04/04/18 22:18 - Medical History PMH: HTN, Hypercholesterolemia, Seizures (childhood no lomger), Chronic Pain (right hip secondary to surgery) Denies: Chronic Kidney Disease Surgical History: No Surg Hx - [facility] Procedures BYPASS CEREB VENT TO PERITON CAV W SYNTH SUB, PERC (03/15/15) Family History: States: Unknown Family Hx - Social History Hx Tobacco Use: No Hx Alcohol Use: No Hx Substance Use: No - Immunization History Hx Tetanus Toxoid Vaccination: No Hx Influenza Vaccination: No Hx Pneumococcal Vaccination: No <Nava Skelton - Last Filed: 04/05/18 13:50> Review Of Systems Constitutional: Negative for: Fever, Chills Eyes: Negative for: Vision Change Cardiovascular: Negative for: Chest Pain, Palpitations Respiratory: Negative for: Shortness of Breath Gastrointestinal: Negative for: Nausea, Vomiting, Abdominal Pain Skin: Negative for: Rash Neurological: Positive for: Dizziness. Negative for: Weakness, Numbness, Headache <Nava Skelton - Last Filed: 04/05/18 13:50> Physical Exam - Physical Exam Appears: Non-toxic, In Acute Distress Skin: Normal Color, Warm, Dry Head: Atraumatic, Normacephalic Eye(s): bilateral: Normal Inspection, PERRL, EOMI Oral Mucosa: Moist Neck: Normal ROM, Supple Chest: Symmetrical Cardiovascular: Rhythm Regular Respiratory: Normal Breath Sounds, No Rales, No Rhonchi, No Wheezing Gastrointestinal/Abdominal: Soft, No Tenderness, No Guarding, No Rebound Extremity: Normal ROM, No Tenderness, No Swelling Neurological/Psych: Oriented x3, Normal Speech, Normal Cognition, Other (no focal deficits) Gait: Steady <Nava Skelton - Last Filed: 04/05/18 13:50> ED Course And Treatment - Laboratory Results Result Diagrams: 04/05/18 00:15 04/05/18 00:15 ECG: Interpreted By Me, Viewed By Me ECG Rhythm: Sinus Rhythm (64), Nonspecific Changes Pulse Ox Interpretation: Normal Reevaluation Time: 03:09 Reassessment Condition: Improved <Lynn Angulo - Last Filed: 04/05/18 03:08> - Laboratory Results Result Diagrams: 04/05/18 00:15 04/05/18 00:15 O2 Sat by Pulse Oximetry: 96 (ON RA) Pulse Ox Interpretation: Normal <Nava Skelton - Last Filed: 04/05/18 13:50> Medical Decision Making Medical Decision Making: Impression: dizziness Plan: * Labs * IV fluids * UA * EKG Patient turned over to Dr. Angulo at 0100, shift change. Follow up UA and EKG. Patient resting comfortably at this time. <Nava Skelton - Last Filed: 04/05/18 13:50> Disposition Counseled Patient/Family Regarding: Studies Performed, Diagnosis, Need For Followup, Rx Given - Disposition Disposition Time: 01:00 <Lynn Angulo - Last Filed: 04/05/18 03:08> <Nava Skelton - Last Filed: 04/05/18 13:50> - Disposition Referrals: Rashaun Orellana [Staff Provider] - Disposition: HOME/ ROUTINE Condition: FAIR Additional Instructions: Please return if symptoms recur Prescriptions: Meclizine [Antivert] 25 mg PO TID #15 tab Instructions: Vertigo (a Type of Dizziness) Forms: [employer] (Guinean) - Clinical Impression Clinical Impression: Dizziness - Scribe Statement The provider has reviewed the documentation as recorded by the Scribe Deven Luna All medical record entries made by the Scribe were at my direction and personally dictated by me. I have reviewed the chart and agree that the record accurately reflects my personal performance of the history, physical exam, medical decision making, and the department course for this patient. I have also personally directed, reviewed, and agree with the discharge instructions and disposition. <Nava Skelton - Last Filed: 04/05/18 13:50>
[2018-04-05] MEDS ORDERED: Sodium Chloride 0.9% 1,000 ML ONE (00:04)
[2018-04-05 00:18] LABS: BASO # 0.1 K/uL (0.0-0.2); BASO % 0.6 % (0.0-2.0); EOS % 0.3 % (0.0-4.0); LYMPH # 1.9 K/uL (1.0-4.3); LYMPH % 20.6 % (20.0-40.0); MEAN CORPUSCULAR HEMOGLOBIN 30.9 pg (27.0-31.0); MEAN CORPUSCULAR HGB CONC 34.3 g/dL (33.0-37.0); MEAN PLATELET VOLUME 7.6 fL (7.2-11.7); MONO # 0.3 K/uL (0.0-0.8); MONO % 3.6 % (0.0-10.0); NEUT % 74.9 % (50.0-75.0); RBC 4.21 Mil/uL (3.80-5.20); RED CELL DISTRIBUTION WIDTH 13.8 % (11.5-14.5); WHITE BLOOD COUNT 9.3 K/uL (4.8-10.8)
[2018-04-05 00:29] LABS: ALB/GLOB RATIO 1.4 (1.0-2.1); ALBUMIN 4.2 g/dL (3.5-5.0); ALT/SGPT 31 U/L (9-52); AST/SGOT 18 U/L (14-36); BLOOD UREA NITROGEN 12 mg/dL (7-17); CALCIUM 8.4 mg/dl (8.6-10.4); GFR NON-AFRICAN AMERICAN > 60
[2018-04-05 01:30] LABS: SQUAMOUS EPITHIAL 2 /hpf (0-5); URINE BACTERIA RARE (<OCC); URINE BILIRUBIN NEGATIVE (NEGATIVE); URINE BLOOD NEGATIVE (NEGATIVE); URINE CLARITY Clear (Clear); URINE COLOR Yellow (YELLOW); URINE GLUCOSE (UA) NORMAL (Normal); URINE LEUKOCYTE ESTERASE NEG Leu/uL (Negative); URINE PROTEIN NEGATIVE (NEGATIVE); URINE UROBILINOGEN NORMAL mg/dL (0.2-1.0)
[2018-04-05 01:39] LABS: BARBITURATES, UR NEGATIVE (NEGATIVE); BENZODIAZEPINES, UR NEGATIVE (NEGATIVE); OPIATES, UR NEGATIVE (NEGATIVE); PHENCYCLIDINE, UR NEGATIVE (NEGATIVE)
[2018-04-05 03:41] VITALS: BP 118/68; PULSE 64; RESP 17; TEMP 97.9
[2018-04-05 13:50] VITALS: O2SAT 96
--- NOTE | 2018-04-07 22:15 | CARD ---
APPROVED REPORT Date of service: 04/05/2018 EKG Measurement Heart [id number] VT 156P0 [id number] <Conclusion> Sinus Bradycardia Abnormal ECG
== END 2018-04-05 03:56 | disposition home or self-care (01) ==
LOC: C.ER 21:31
DX: R42 Dizziness and giddiness (principal); I10 Essential (primary) hypertension; E78.00 Pure hypercholesterolemia, unspecified
CPT/HCPCS: 80053; 80324; 80345; 80346; 80349; 80353; 80358; 80361; 81001; 83992; 85025; 93005; 99285; J7030

== ENCOUNTER 2018-04-08 13:16 | Emergency (ER) | payer MEDICAID ==
[2018-04-08 13:16] VITALS: BMI 30.9
[2018-04-08 14:01] VITALS: TEMP 99.7; O2SAT 99
--- NOTE | 2018-04-08 16:16 | C.PDOC ---
History Of Present Illness 47 year old female presents to the ED for evaluation of dizziness, cough and frontal headache which began a few days ago. Patient was evaluated in the ED on 04/04/18 for similar complaints. Patient states she experiences dizziness "all the time" and is also complaining of nausea and some chills. Patient states she "passed out" upon ED arrival. This episode was not witnessed by staff. She denies fever, generalized body aches, vomiting, diarrhea, recent travel. Patient states her LMP was April 2017; patient has history of irregular periods. Chief Complaint (Nursing): Dizziness/Lightheaded History Per: Patient History/Exam Limitations: no limitations Past Medical History Reviewed: Historical Data, Nursing Documentation, Vital Signs Vital Signs: Last Vital Signs Temp 99.7 F H 04/08/18 13:53 Pulse 76 04/08/18 13:53 Resp 20 04/08/18 13:53 BP 101/64 04/08/18 13:53 Pulse Ox 99 04/08/18 13:53 - Medical History PMH: HTN, Hypercholesterolemia, Seizures (childhood no lomger), Chronic Pain (right hip secondary to surgery) Denies: Chronic Kidney Disease Surgical History: No Surg Hx - [facility] Procedures BYPASS CEREB VENT TO PERITON CAV W SYNTH SUB, PERC (03/15/15) Family History: States: Unknown Family Hx - Social History Hx Tobacco Use: No Hx Alcohol Use: No Hx Substance Use: No - Immunization History Hx Tetanus Toxoid Vaccination: No Hx Influenza Vaccination: Yes Hx Pneumococcal Vaccination: No Review Of Systems Constitutional: Negative for: Fever Cardiovascular: Negative for: Chest Pain Respiratory: Negative for: Cough Gastrointestinal: Positive for: Nausea. Negative for: Vomiting Neurological: Positive for: Dizziness Physical Exam - Physical Exam Appears: Non-toxic, No Acute Distress Skin: Normal Color, Warm, Dry Head: Atraumatic, Normacephalic Eye(s): bilateral: Normal Inspection Ear(s): Bilateral: Normal Oral Mucosa: Moist Neck: Supple Chest: Symmetrical, No Deformity, No Tenderness Cardiovascular: Rhythm Regular, No Murmur Respiratory: Normal Breath Sounds, No Rales, No Rhonchi, No Wheezing Extremity: Normal ROM, Capillary Refill (less than 2 seconds ) Neurological/Psych: Oriented x3, Normal Speech, Normal Cognition ED Course And Treatment - Laboratory Results Result Diagrams: 04/08/18 17:34 04/08/18 17:34 ECG: Interpreted By Me, Viewed By Me ECG Rhythm: Sinus Rhythm ECG Interpretation: No Changes From Prior (04/05/18) Interpretation Of ECG: Normal Sinus Rhythm at rate 69bpm. Normal intervals, normal axis. Rate From EC O2 Sat by Pulse Oximetry: 99 (on RA) Pulse Ox Interpretation: Normal - Other Rad CXR X-Ray: Viewed By Me, Read By Radiologist Interpretation: HISTORY: AMS. COMPARISON: Chest x-ray performed 05/27/17. TECHNIQUE: Chest PA and lateral. FINDINGS: LUNGS: No focal consolidation. Please note that chest x-ray has limited sensitivity for the detection of pulmonary masses. PLEURA: No significant pleural effusion identified. No definite pneumothorax . CARDIOVASCULAR: Borderline cardiomegaly. Ectatic aorta. No atherosclerotic calcification present. OSSEOUS STRUCTURES: Mild degenerative changes. VISUALIZED UPPER ABDOMEN: Unremarkable. OTHER FINDINGS: Partially imaged catheter projects over the right neck, right ml thorax and right abdomen consistent with BAND AND CUFF CUTTER shunt catheter. IMPRESSION: No focal consolidation. Right-sided BAND AND CUFF CUTTER shunt catheter. - CT Scan/US Head CT Other Rad Studies (CT/US): Read By Radiologist, Radiology Report Reviewed CT/US Interpretation: Date of service: 04/08/2018. PROCEDURE: CT HEAD WITHOUT CONTRAST. HISTORY: AMS. COMPARISON: Comparison made with CT scan brain 10/08/2016. TECHNIQUE: Axial computed tomography images were obtained through the head/brain without intravenous contrast. Radiation dose: Total exam DLP = 1061.02 mGy-cm. This CT exam was performed using one or more of the following dose reduction techniques: Automated exposure control, adjustment of the mA and/or kV according to patient size, and/or use of iterative reconstruction technique. FINDINGS: HEMORRHAGE: No acute parenchymal, subarachnoid nor extra-axial mild to moderate diffuse and confluent hemorrhage. BRAIN: Mild to moderate diffuse and confluent chronic low-attenuation changes seen extending from the periventricular into the deep and subcortical white matter both cerebral hemispheres. There is also extension of these changes into the white matter tracts of both basal nuclei. Findings may represent chronic sequela of longstanding hydrocephalus. Note that the possibility of concomitant chronic sequela small vessel disease, post infectious/inflammatory, posttraumatic or sequela of atypical demyelinating disease process not excluded... There is also a discrete area of low attenuation left superior frontal cortical and subcortical region with overlying subcutaneous scalp scarring. Findings probably represent an old filled in da hole. VENTRICLES: Persistent marked dilatation of the 3rd and lateral ventricles with normal-appearing 4th ventricle despite well placed BAND AND CUFF CUTTER shunt tube that enters a right posterior parietal da h ole extends through the posterior frontoparietal lobe and into the right lateral ventricle terminating at midline... Note also made of marked on the enlargement of the suprasellar cistern. Rule out arachnoid cyst and/or intraventricular arachnoid cyst involving the 3rd ventricle as a possible etiology for the aforementioned hydrocephalus versus versus chronic obstructive hydrocephalus non communicating type with obstruction at the level of the [place]. CALVARIUM: Probable old filled in da hole left superior frontoparietal calvarium at the vertex. No acute calvarial fractures. PARANASAL SINUSES: Unremarkable as visualized. No significant inflammatory changes. MASTOID AIR CELLS: Unremarkable as visualized. No inflammatory changes. OTHER FINDINGS: None. IMPRESSION: Mild to moderate diffuse and confluent chronic low- attenuation changes seen extending from the periventricular into the deep and subcortical white matter both cerebral hemispheres. There is also extension of these changes into the white matter tracts of both basal nuclei. Findings may represent chronic sequela of longstanding hydrocephalus. Note that the possibility of concomitant chronic sequela small vessel disease, post infectious/inflammatory, posttraumatic or sequela of atypical demyelinating disease process not excluded... There is also a discrete area of low attenuation left superior frontal cortical and subcortical region with overlying subcutaneous scalp scarring.. These findings may represent sequela of since removed ventriculostomy and/or BAND AND CUFF CUTTER shunt tube. Persistent marked dilatation of the 3rd and lateral ventricles with normal-appearing 4th ventricle despite well placed BAND AND CUFF CUTTER shunt tube that enters a right posterior parietal da hole extends through the posterior frontoparietal lobe and into the right lateral ventricle terminating at midline... Note also made of marked enlargement of the suprasellar cistern; rule out arachnoid cyst and/or intraventricular arachnoid cyst involving the 3rd ventricle as a possible etiology for the aforementioned hydrocephalus versus versus chronic obstructive hydrocephalus non communicating type with obstruction at the level of the [place]. Medical Decision Making Medical Decision Making: Impression: 47 year old female with dizziness Plan: * bloodwork * urinalysis * CT Head * CXR * IV Fluids * reassess and disposition Progress: bloodwork, urinalysis, CT Head and CXR ordered and reviewed. Iv Fluids given. [address] Perez (hospitalist), who recommends to call Neurosurgeon landfill gas collection system operator for re-evaluation of CT Head scan. [address] Elliott. pending callback. Patient states she is hungry and is requesting food to eat. 2037: Case discussed with Dr. Riley, who states he will evaluate the CT Head and will call back. 2047: Dr. Riley has reviewed the CT Head, states it is unchanged from previous. Disposition Counseled Patient/Family Regarding: Studies Performed, Diagnosis, Need For Followup - Disposition Disposition: HOSPITALIZED Disposition Time: 20:57 Condition: STABLE Additional Instructions: IRIS NGUYEN, thank you for letting us take care of you today. Your provider was Kenzie Kennedy MD and you were treated for DIZZINESS. The emergency medical care you received today was directed at your acute symptoms. If you were prescribed any medication, please fill it and take as directed. It may take several days for your symptoms to resolve. Return to the Emergency Department if your symptoms worsen, do not improve, or if you have any other problems. Please contact your doctor or call one of the physicians/clinics you have been referred to that are listed on the Patient Visit Information form that is included in your discharge packet. Bring any paperwork you were given at discharge with you along with any medications you are taking to your follow up visit. Our treatment cannot replace ongoing medical care by a primary care provider outside of the emergency department. Thank you for allowing the [facility] team to be part of your care today. Forms: [employer] (Latvian), General Discharge Instructions - POA Present On Arrival: None - Clinical Impression Clinical Impression: Near syncope, Dizziness - Scribe Statement The provider has reviewed the documentation as recorded by the Scribe (Eleanor Bang) Provider Attestation: All medical record entries made by the Scribe were at my direction and personally dictated by me. I have reviewed the chart and agree that the record accurately reflects my personal performance of the history, physical exam, medic al decision making, and the department course for this patient. I have also personally directed, reviewed, and agree with the discharge instructions and disposition.
[2018-04-08] MEDS ORDERED: Sodium Chloride 0.9% 1,000 ML IV ONE (17:20)
--- NOTE | 2018-04-08 17:42 | RAD ---
HISTORY: AMS COMPARISON: Chest x-ray performed 05/27/17 TECHNIQUE: Chest PA and lateral FINDINGS: LUNGS: No focal consolidation. Please note that chest x-ray has limited sensitivity for the detection of pulmonary masses. PLEURA: No significant pleural effusion identified. No definite pneumothorax . CARDIOVASCULAR: Borderline cardiomegaly. Ectatic aorta. No atherosclerotic calcification present. OSSEOUS STRUCTURES: Mild degenerative changes. VISUALIZED UPPER ABDOMEN: Unremarkable. OTHER FINDINGS: Partially imaged catheter projects over the right neck, right ml thorax and right abdomen consistent with FREIGHT MANAGER shunt catheter. IMPRESSION: No focal consolidation. Right-sided FREIGHT MANAGER shunt catheter.
[2018-04-08 17:53] LABS: BASO % 0.5 % (0.0-2.0); EOS # 0.1 K/uL (0.0-0.7); EOS % 1.6 % (0.0-4.0); HEMOGLOBIN 13.8 g/dL (11.0-16.0); LYMPH # 1.8 K/uL (1.0-4.3); LYMPH % 21.6 % (20.0-40.0); MEAN CELL VOLUME 90.7 fL (81.0-99.0); MEAN CORPUSCULAR HEMOGLOBIN 30.5 pg (27.0-31.0); MEAN CORPUSCULAR HGB CONC 33.6 g/dL (33.0-37.0); MEAN PLATELET VOLUME 7.5 fL (7.2-11.7); MONO # 0.5 K/uL (0.0-0.8); MONO % 6.4 % (0.0-10.0); NEUT # 5.7 K/uL (1.8-7.0); NEUT % 69.9 % (50.0-75.0); NRBC % 0.1 % (0.0-2.0); RBC 4.53 Mil/uL (3.80-5.20); RED CELL DISTRIBUTION WIDTH 13.9 % (11.5-14.5); WHITE BLOOD COUNT 8.2 K/uL (4.8-10.8)
--- NOTE | 2018-04-08 18:17 | CT ---
Date of service: 04/08/2018 PROCEDURE: CT HEAD WITHOUT CONTRAST. HISTORY: AMS COMPARISON: Comparison made with CT scan brain 10/08/2016 TECHNIQUE: Axial computed tomography images were obtained through the head/brain without intravenous contrast. Radiation dose: Total exam DLP = 1061.02 mGy-cm. This CT exam was performed using one or more of the following dose reduction techniques: Automated exposure control, adjustment of the mA and/or kV according to patient size, and/or use of iterative reconstruction technique. FINDINGS: HEMORRHAGE: No acute parenchymal, subarachnoid nor extra-axial mild to moderate diffuse and confluent hemorrhage. BRAIN: Mild to moderate diffuse and confluent chronic low-attenuation changes seen extending from the periventricular into the deep and subcortical white matter both cerebral hemispheres. There is also extension of these changes into the white matter tracts of both basal nuclei. Findings may represent chronic sequela of longstanding hydrocephalus. Note that the possibility of concomitant chronic sequela small vessel disease, post infectious/inflammatory, posttraumatic or sequela of atypical demyelinating disease process not excluded... There is also a discrete area of low attenuation left superior frontal cortical and subcortical region with overlying subcutaneous scalp scarring. Findings probably represent an old filled in da hole. VENTRICLES: Persistent marked dilatation of the 3rd and lateral ventricles with normal-appearing 4th ventricle despite well placed CADET DECK shunt tube that enters a right posterior parietal da hole extends through the posterior frontoparietal lobe and into the right lateral ventricle terminating at midline... Note also made of marked on the enlargement of the suprasellar cistern. Rule out arachnoid cyst and/or intraventricular arachnoid cyst involving the 3rd ventricle as a possible etiology for the aforementioned hydrocephalus versus versus chronic obstructive hydrocephalus non communicating type with obstruction at the level of the [place]. CALVARIUM: Probable old filled in da hole left superior frontoparietal calvarium at the vertex. No acute calvarial fractures. PARANASAL SINUSES: Unremarkable as visualized. No significant inflammatory changes. MASTOID AIR CELLS: Unremarkable as visualized. No inflammatory changes. OTHER FINDINGS: None. IMPRESSION: Mild to moderate diffuse and confluent chronic low-attenuation changes seen extending from the periventricular into the deep and subcortical white matter both cerebral hemispheres. There is also extension of these changes into the white matter tracts of both basal nuclei. Findings may represent chronic sequela of longstanding hydrocephalus. Note that the possibility of concomitant chronic sequela small vessel disease, post infectious/inflammatory, posttraumatic or sequela of atypical demyelinating disease process not excluded... There is also a discrete area of low attenuation left superior frontal cortical and subcortical region with overlying subcutaneous scalp scarring.. These findings may represent sequela of since removed ventriculostomy and/or CADET DECK shunt tube Persistent marked dilatation of the 3rd and lateral ventricles with normal-appearing 4th ventricle despite well placed CADET DECK shunt tube that enters a right posterior parietal da hole extends through the posterior frontoparietal lobe and into the right lateral ventricle terminating at midline... Note also made of marked enlargement of the suprasellar cistern; rule out arachnoid cyst and/or intraventricular arachnoid cyst involving the 3rd ventricle as a possible etiology for the aforementioned hydrocephalus versus versus chronic obstructive hydrocephalus non communicating type with obstruction at the level of the [place].
[2018-04-08 18:20] LABS: ALB/GLOB RATIO 1.3 (1.0-2.1); ALBUMIN 4.4 g/dL (3.5-5.0); ALT/SGPT 24 U/L (9-52); AST/SGOT 18 U/L (14-36); BLOOD UREA NITROGEN 11 mg/dL (7-17); GFR NON-AFRICAN AMERICAN > 60
[2018-04-08 18:56] LABS: SQUAMOUS EPITHIAL 12 /hpf (0-5); URINE BACTERIA RARE (<OCC); URINE BILIRUBIN NEGATIVE (NEGATIVE); URINE BLOOD NEGATIVE (NEGATIVE); URINE CLARITY Hazy (Clear); URINE COLOR Yellow (YELLOW); URINE GLUCOSE (UA) NORMAL (Normal); URINE LEUKOCYTE ESTERASE NEG Leu/uL (Negative); URINE PROTEIN NEGATIVE (NEGATIVE); URINE UROBILINOGEN NORMAL mg/dL (0.2-1.0)
[2018-04-08 18:57] LABS: HCG,QUALITATIVE URINE NEGATIVE (NEGATIVE)
[2018-04-08 19:06] LABS: BARBITURATES, UR NEGATIVE (NEGATIVE); BENZODIAZEPINES, UR NEGATIVE (NEGATIVE); OPIATES, UR NEGATIVE (NEGATIVE); PHENCYCLIDINE, UR NEGATIVE (NEGATIVE)
[2018-04-08 20:11] VITALS: RESP 18
[2018-04-08 21:27] VITALS: BP 119/65; PULSE 75
== END 2018-04-08 21:26 | disposition short-term general hospital (02) ==
LOC: C.ER 13:16
DX: R42 Dizziness and giddiness (principal); R55 Syncope and collapse; E78.00 Pure hypercholesterolemia, unspecified; I10 Essential (primary) hypertension
CPT/HCPCS: 70450; 71046; 80053; 80324; 80345; 80346; 80349; 80353; 80358; 80361; 81001; 83992; 84484; 84703; 85025; 93005; 99285; J7030

== ENCOUNTER 2018-04-18 15:06 | Emergency (ER) | payer MEDICAID ==
[2018-04-18 15:13] VITALS: BMI 195.0
[2018-04-18 15:15] VITALS: BP 120/83; PULSE 73; RESP 18; TEMP 98; O2SAT 99
--- NOTE | 2018-04-18 16:58 | C.PDOC ---
History Of Present Illness 47 year old female with a PMHx of HTN, hydrocephalus, s/p AIRCRAFT RIVETER shunt, presents to the ED with complaints of right forearm pain for 1 day. States she awoke today with right forearm pain and swelling. She denies recent fall or blunt trauma. Patient also denies any headache, fevers, chills, numbness, or extremity weakness. Of note, patient was seen approximately 1 year ago for similar complaint, had negative x-ray, and was instructed to take nsaids and RICE. Time Seen by Provider: 04/18/18 15:36 Chief Complaint (Nursing): Upper Extremity Problem/Injury History Per: Patient History/Exam Limitations: no limitations Onset/Duration Of Symptoms: Days (x 1) Current Symptoms Are (Timing): Still Present Past Medical History Reviewed: Historical Data, Nursing Documentation, Vital Signs Vital Signs: Last Vital Signs Temp 98.0 F 04/18/18 15:13 Pulse 73 04/18/18 15:13 Resp 18 04/18/18 15:13 BP 120/83 04/18/18 15:13 Pulse Ox 99 04/18/18 15:13 - Medical History PMH: HTN, Hypercholesterolemia, Seizures (childhood no lomger), Chronic Pain (right hip secondary to surgery) Denies: Chronic Kidney Disease Other PMH: Hydrocephalus Other Surgeries: AIRCRAFT RIVETER shunt - [facility] Procedures BYPASS CEREB VENT TO PERITON CAV W SYNTH SUB, PERC (03/15/15) Family History: States: Unknown Family Hx - Social History Hx Tobacco Use: No Hx Alcohol Use: No Hx Substance Use: No - Immunization History Hx Tetanus Toxoid Vaccination: No Hx Influenza Vaccination: Yes Hx Pneumococcal Vaccination: No Review Of Systems Except As Marked, All Systems Reviewed And Found Negative. Constitutional: Negative for: Fever, Chills Musculoskeletal: Positive for: Arm Pain Skin: Negative for: Rash Neurological: Negative for: Weakness, Numbness, Incoordination, Headache Physical Exam - Physical Exam Appears: Well, Non-toxic, No Acute Distress Skin: Warm, Dry, Other (Scattered small lesions to bilateral arms -- pt reports being diagnosed with herpetic lesions) Head: Atraumatic, Normacephalic Eye(s): bilateral: Normal Inspection, PERRL, EOMI Oral Mucosa: Moist Neck: Normal ROM Chest: Symmetrical Respiratory: No Accessory Muscle Use, Other (No respiratory distress) Extremity: Normal ROM, Tenderness (over the right forearm), No Deformity, Swelling (to volar aspect of right forearm) Pulses: Left Radial: Normal, Right Radial: Normal Neurological/Psych: Oriented x3, Normal Motor, Normal Sensation Gait: Steady ED Course And Treatment O2 Sat by Pulse Oximetry: 99 (RA) Pulse Ox Interpretation: Normal Medical Decision Making Medical Decision Making: Impression: Forearm pain, arthritis vs ligamentous injury Plan: --Tylenol 975 mg PO --Motrin 600 mg PO --Right forearm x-ray Imaging reviewed and discussed with patient. Plan is to discharge patient home. Advised to follow up with PMD and take motrin PRN for pain. Disposition - Disposition Referrals: at [facility] [Outside] Disposition: HOME/ ROUTINE Disposition Time: 17:37 Condition: STABLE Prescriptions: Ibuprofen [Motrin] 600 mg PO TID #15 tab Instructions: Joint Pain Forms: Gen Discharge Inst [employer]ati, [employer] (Emirati), Work Excuse - POA Present On Arrival: None - Clinical Impression Clinical Impression: Contusion, Joint swelling - Scribe Statement The provider has reviewed the documentation as recorded by the Ambika Ordoñez Provider Attestation: All medical record entries made by the Elielibbebe were at my direction and personally dictated by me. I have reviewed the chart and agree that the record accurately reflects my personal performance of the history, physical exam, medical decision making, and the department course for this patient. I have also personally directed, reviewed, and agree with the discharge instructions and disposition.
--- NOTE | 2018-04-18 18:17 | RAD ---
PROCEDURE: Radiographs of the Right Forearm HISTORY: pain and swelling COMPARISON: None available. TECHNIQUE: Frontal and lateral views obtained. FINDINGS: BONES: No fracture or destructive lesion. JOINT SPACES: Unremarkable. OTHER FINDINGS: None. IMPRESSION: Unremarkable radiographs of the right forearm.
== END 2018-04-18 17:51 | disposition home or self-care (01) ==
LOC: C.ER 15:06
DX: S50.11XA Contusion of right forearm, initial encounter (principal); X58.XXXA Exposure to other specified factors, initial encounter; I10 Essential (primary) hypertension; G91.9 Hydrocephalus, unspecified; E78.00 Pure hypercholesterolemia, unspecified

== ENCOUNTER 2018-07-17 16:03 | Emergency (ER) | payer MEDICAID ==
[2018-07-17 16:06] VITALS: BMI 37.0
[2018-07-17 16:10] VITALS: TEMP 97.9
[2018-07-17 17:13] LABS: BASO % 0.6 % (0.0-2.0); EOS # 0.1 K/uL (0.0-0.7); EOS % 1.9 % (0.0-4.0); HEMOGLOBIN 12.9 g/dL (11.0-16.0); LYMPH # 2.5 K/uL (1.0-4.3); LYMPH % 44.4 % (20.0-40.0); MEAN CORPUSCULAR HEMOGLOBIN 28.9 pg (27.0-31.0); MEAN CORPUSCULAR HGB CONC 34.2 g/dL (33.0-37.0); MEAN PLATELET VOLUME 7.3 fL (7.2-11.7); MONO # 0.5 K/uL (0.0-0.8); MONO % 8.1 % (0.0-10.0); NEUT # 2.5 K/uL (1.8-7.0); NRBC % 0.1 % (0.0-2.0); RBC 4.47 Mil/uL (3.80-5.20); WHITE BLOOD COUNT 5.6 K/uL (4.8-10.8)
--- NOTE | 2018-07-17 17:17 | C.PDOC ---
History Of Present Illness 47 y/o F c PMHx CHF p/w leg swelling, dyspnea x 2 weeks. Reports dyspnea is worse with walking or going up stairs. States lower legs getting more swollen symmetrically. Reports chest pain with walking sometimes as well but not since her last visit to this hospital. No chest pain currently or today. Denies fever, chills, cough, vomiting, diarrhea, dysuria, recent travel, hemoptysis. PMD Herminia Saeed Time Seen by Provider: 07/17/18 16:33 Chief Complaint (Nursing): Lower Extremity Problem/Injury Past Medical History Vital Signs: Last Vital Signs Temp 97.9 F 07/17/18 16:06 Pulse 75 07/17/18 16:06 Resp 18 07/17/18 16:06 BP 120/82 07/17/18 16:06 Pulse Ox 97 07/17/18 16:06 - Medical History PMH: HTN, Hypercholesterolemia, Seizures (childhood no lomger), Chronic Pain (right hip secondary to surgery) Denies: Chronic Kidney Disease - [facility] Procedures BYPASS CEREB VENT TO PERITON CAV W SYNTH SUB, PERC (03/15/15) Family History: States: Unknown Family Hx - Social History Hx Tobacco Use: No Hx Alcohol Use: No Hx Substance Use: No - Immunization History Hx Tetanus Toxoid Vaccination: No Hx Influenza Vaccination: Yes Hx Pneumococcal Vaccination: No Review Of Systems Except As Marked, All Systems Reviewed And Found Negative. Constitutional: Negative for: Fever Gastrointestinal: Negative for: Vomiting Physical Exam - Physical Exam Additional Physical Exam Comments: gen nad head nc/at eyes perrl ent mmm neck supple chest no tenderness cv reg rate lungs cta b/l abd soft nt back no cva tenderness skin no rash extremities bilateral pitting edema neuro alert ED Course And Treatment - Laboratory Results Result Diagrams: 07/17/18 17:07 07/17/18 17:07 ECG: Interpreted By Me, Viewed By Me ECG Rhythm: Sinus Rhythm ECG Interpretation: No Acute Changes Interpretation Of ECG: No ST/T wave changes Rate From EC O2 Sat by Pulse Oximetry: 97 Pulse Ox Interpretation: Normal Medical Decision Making Medical Decision Making: FINDINGS: Partially imaged catheter projects over the right neck, right ml thorax and right abdomen consistent with TELECOMMUNICATIONS ENGINEER shunt catheter. LUNGS: No focal consolidation. Please note that chest x-ray has limited sensitivity for the detection of pulmonary masses. PLEURA: No significant pleural effusion identified. No definite pneumothorax . CARDIOVASCULAR: Size appears top-normal. No atherosclerotic calcification present. OSSEOUS STRUCTURES: No acute osseous abnormality identified. VISUALIZED UPPER ABDOMEN: Unremarkable. OTHER FINDINGS: None. IMPRESSION: No focal consolidation. Partially imaged right-sided TELECOMMUNICATIONS ENGINEER shunt catheter. Labs unremarkable, CXR shows no fluid, patient in no distress. Will discharge, f/u PMD, return to ED for worsening pain, breathing, fever, or any other problem. Disposition - Disposition Referrals: Mahesh Saeed MD [Medical Doctor] - Disposition: HOME/ ROUTINE Disposition Time: 19:51 Condition: GOOD Instructions: Dependent Edema (DC) Forms: [facility] (Urdu) - Clinical Impression Clinical Impression: Pedal edema
[2018-07-17 17:20] LABS: MEAN CELL VOLUME 84.6 fL (81.0-99.0)
[2018-07-17 17:24] LABS: HCG,QUALITATIVE URINE NEGATIVE (NEGATIVE)
[2018-07-17 17:24] LABS: PROTHROMBIN TIME 10.8 SECONDS (9.7-12.2)
[2018-07-17 17:26] LABS: SQUAMOUS EPITHIAL 6 /hpf (0-5); URINE BACTERIA RARE (<OCC); URINE BILIRUBIN NEGATIVE (NEGATIVE); URINE BLOOD NEGATIVE (NEGATIVE); URINE CLARITY Hazy (Clear); URINE COLOR Yellow (YELLOW); URINE GLUCOSE (UA) NORMAL (Normal); URINE LEUKOCYTE ESTERASE NEG Leu/uL (Negative); URINE PROTEIN NEGATIVE (NEGATIVE); URINE UROBILINOGEN NORMAL mg/dL (0.2-1.0)
[2018-07-17 17:34] VITALS: BP 113/63; PULSE 66; RESP 21
[2018-07-17 17:37] LABS: B-TYPE NATRIURETIC PEPTIDE 15.6 pg/mL (0-450); CK-MB 0.91 ng/mL (0.0-3.38)
[2018-07-17 17:44] LABS: ALB/GLOB RATIO 1.3 (1.0-2.1); ALBUMIN 4.1 g/dL (3.5-5.0); ALT/SGPT 20 U/L (9-52); AST/SGOT 25 U/L (14-36); BLOOD UREA NITROGEN 16 mg/dL (7-17); GFR NON-AFRICAN AMERICAN > 60
--- NOTE | 2018-07-17 18:26 | RAD ---
HISTORY: dyspnea COMPARISON: Chest x-ray performed 04/08/18 TECHNIQUE: Chest PA and lateral, 2 views FINDINGS: Partially imaged catheter projects over the right neck, right ml thorax and right abdomen consistent with INTERIOR DESIGN PROJECT MANAGER shunt catheter. LUNGS: No focal consolidation. Please note that chest x-ray has limited sensitivity for the detection of pulmonary masses. PLEURA: No significant pleural effusion identified. No definite pneumothorax . CARDIOVASCULAR: Size appears top-normal. No atherosclerotic calcification present. OSSEOUS STRUCTURES: No acute osseous abnormality identified. VISUALIZED UPPER ABDOMEN: Unremarkable. OTHER FINDINGS: None. IMPRESSION: No focal consolidation. Partially imaged right-sided INTERIOR DESIGN PROJECT MANAGER shunt catheter.
[2018-07-17 18:32] VITALS: O2SAT 97
--- NOTE | 2018-07-18 23:30 | CARD ---
APPROVED REPORT Date of service: 07/17/2018 EKG Measurement Heart [id number] ID [id number] <Conclusion> Normal sinus rhythm Low voltage QRS Incomplete right bundle branch block Borderline ECG
== END 2018-07-17 19:57 | disposition home or self-care (01) ==
LOC: C.ER 16:03
DX: R60.0 Localized edema (principal)
CPT/HCPCS: 71046; 80053; 81001; 82550; 82553; 83735; 83880; 84100; 84484; 84703; 85025; 85610; 85730; 93005; 96374; 99285; J1940

== ENCOUNTER 2018-07-21 12:57 | Emergency (ER) | payer MEDICAID ==
[2018-07-21 12:57] VITALS: BMI 37.0
[2018-07-21 13:10] VITALS: BP 130/85; PULSE 66; TEMP 97.9; O2SAT 100
--- NOTE | 2018-07-21 13:44 | C.PDOC ---
History Of Present Illness Patient is a 47 year old homeless female who lives in a fci, with a PMHx of anxiety and depression, who presents to the ED c/o lower extremity edema that has been present for the past few years. She states that her edema is better in the mornings and worse in the evenings. Patient was seen in the ED 3 days ago and had a normal workup. Patient states that she saw her PMD today, who referred her to come to the ED. Patient is lost to follow up. She denies any SOB, chest pressure, or CP. Time Seen by Provider: 07/21/18 13:31 Chief Complaint (Nursing): Lower Extremity Problem/Injury History Per: Patient History/Exam Limitations: no limitations Onset/Duration Of Symptoms: Other (several years ) Current Symptoms Are (Timing): Still Present Recent travel outside of the [place]: No Additional History Per: Patient Past Medical History Reviewed: Historical Data, Nursing Documentation, Vital Signs Vital Signs: Last Vital Signs Temp 97.9 F 07/21/18 13:09 Pulse 66 07/21/18 13:09 Resp 18 07/21/18 13:09 BP 130/85 07/21/18 13:09 Pulse Ox 100 07/21/18 13:09 - Medical History PMH: HTN, Hypercholesterolemia, Seizures (childhood no lomger), Chronic Pain (right hip secondary to surgery) Denies: Chronic Kidney Disease Surgical History: No Surg Hx - [facility] Procedures BYPASS CEREB VENT TO PERITON CAV W SYNTH SUB, PERC (03/15/15) Family History: States: Unknown Family Hx - Social History Hx Tobacco Use: No Hx Alcohol Use: No Hx Substance Use: No - Immunization History Hx Tetanus Toxoid Vaccination: No Hx Influenza Vaccination: Yes Hx Pneumococcal Vaccination: No Review Of Systems Cardiovascular: Negative for: Chest Pain, Other (chest pressure) Respiratory: Negative for: Shortness of Breath Musculoskeletal: Positive for: Leg Pain (bilateral lower extremity edema) Physical Exam - Physical Exam Appears: Non-toxic, No Acute Distress, Other (obese female ) Skin: Normal Color, Warm, Dry Head: Atraumatic, Normacephalic Oral Mucosa: Moist Neck: Normal ROM Chest: Symmetrical, No Deformity Cardiovascular: Rhythm Regular, No Murmur Respiratory: Normal Breath Sounds, No Rales, No Rhonchi, No Wheezing Gastrointestinal/Abdominal: Soft, No Tenderness Extremity: Pedal Edema (symmetrical bilateral lower extremity edema) Neurological/Psych: Oriented x3 ED Course And Treatment O2 Sat by Pulse Oximetry: 100 (on RA) Pulse Ox Interpretation: Normal Medical Decision Making Medical Decision Making: Plan: Urinalysis Urinalysis HCG homeless anxiety, many prior ED/cardiac evals with normal results, most recently 3 days ago for chronic pedal edema pt eating salty diet and gaining weight no s/s of CHF/DVT defer repeat w/u as was normal 3 days ago without acute changes TEDS stockings weight loss less salt in diet opt Cardiac w/u as needed anxiety/depression lost to f/u. opt psych referral Disposition Doctor Will See Patient In The: Office Counseled Patient/Family Regarding: Studies Performed, Diagnosis - Disposition Referrals: Mahesh Saeed MD [Medical Doctor] - Disposition: HOME/ ROUTINE Disposition Time: 13:43 Condition: GOOD Additional Instructions: TEDS stockings to ABOVE the knee, keeps leg swelling to minimal less salt in diet do not overdrink fluids Continue weight loss outpatient Cardiology w/u as needed with Dr. Garcia no s/s of DVT/CHF today normal workup 3 days ago, was not repeated to day Instructions: Dependent Edema (DC) Forms: [employer] [facility] (Yi) - Clinical Impression Clinical Impression: Leg edema - Scribe Statement The provider has reviewed the documentation as recorded by the Scribbebe Hardwick All medical record entries made by the Scribe were at my direction and personally dictated by me. I have reviewed the chart and agree that the record accurately reflects my personal performance of the history, physical exam, medical decision making, and the department course for this patient. I have also personally directed, reviewed, and agree with the discharge instructions and disposition.
[2018-07-21 13:49] LABS: HCG,QUALITATIVE URINE NEGATIVE (NEGATIVE)
[2018-07-21 14:01] VITALS: RESP 20
[2018-07-21 14:09] LABS: SQUAMOUS EPITHIAL 7 /hpf (0-5); URINE BACTERIA RARE (<OCC); URINE BILIRUBIN NEGATIVE (NEGATIVE); URINE BLOOD NEGATIVE (NEGATIVE); URINE CLARITY Hazy (Clear); URINE COLOR Straw (YELLOW); URINE GLUCOSE (UA) NORMAL (Normal); URINE LEUKOCYTE ESTERASE NEG Leu/uL (Negative); URINE PROTEIN NEGATIVE (NEGATIVE); URINE UROBILINOGEN NORMAL mg/dL (0.2-1.0)
== END 2018-07-21 14:01 | disposition home or self-care (01) ==
LOC: C.ER 12:57
DX: R60.0 Localized edema (principal); I10 Essential (primary) hypertension; Z87.891 Personal history of nicotine dependence